=== PATIENT | female | born 1935 | race Caucasian/White ===

== ENCOUNTER 2016-06-12 07:44 | Inpatient (IN) | payer OTHER, MEDICARE ==
[~2016-06-12] VITALS: Ht 160 cm; Wt 78.9 kg
[2016-06-12] VITALS (8 sets, daily range): BP systolic 93–120; BP diastolic 58–71; PULSE 69–88; TEMP 36.3–36.8; O2SAT 94–100; Ht 160 cm; Wt 78.9 kg
[~2016-06-12 07:44] MED LIST: ACET325T96 PO; ALEN70TA2 PO; CHOLTAB3 PO; METRONIDAZOLE 500MG / NSS IV SCH; MULT1CAP2 PO; PANT40TA PO
[2016-06-12] MEDS ORDERED: HYDROmorphone INJ 1 MG/ML SYR ONE (08:02)
[2016-06-12] MEDS ORDERED: SODIUM CHLORIDE 0.9% 1000ML 1,000 ML IV STA ×2 (08:03)
[2016-06-12] MEDS ORDERED: HYDROmorphone INJ 2 MG/ML SYR/VIAL IV STA (08:03)
[2016-06-12] MEDS ORDERED: ONDANSETRON INJ 2 MG/ML 2 ML VIAL IV STA (08:03)
[2016-06-12 08:19] LABS: ISTAT CREATININE 0.8 mg/dl (0.6-1.3); ISTAT HEMOGLOBIN 8.2 g/dl (12.0-16.0); ISTAT IONIZED CALCIUM 1.15 mmol/l (1.12-1.32)
[2016-06-12] MEDS ORDERED: PIPERACILLIN/TAZOBACTAM 4.5 GM/100ML D5W IV STA (08:28)
--- NOTE | 2016-06-12 08:28 | DIAGNOSTIC IMAGING REPORT ---
CT ABD/PELVIS IV CONTRAST ONLY CLINICAL HISTORY: Severe generalized abdominal pain COMPARISON STUDY: None. TECHNIQUE: Following the IV administration of 118 mL of Optiray-320, CT scan of the abdomen and pelvis was performed from the lung bases to the proximal femurs. Images are reviewed in the axial, sagittal, and coronal planes. IV contrast was administered without complication. CT DOSE: 602.50 mGy.cm FINDINGS: Lower chest: There is a large hiatal hernia present. There is bibasal atelectasis. Liver: There is mild hepatic steatosis. No focal masses are visualized. Gallbladder: There are tiny gallstones present. Spleen: Normal in size and attenuation. Pancreas: Unremarkable. Adrenal glands: Unremarkable. Kidneys: There is a 32 mm right renal cyst. Bowel: There is a pneumoperitoneum. There is colonic diverticulosis. There are no transition zones indicate bowel obstruction. Surgical consultation is recommended. Peritoneum: There is free intraperitoneal air present. There is pelvic ascites, there is perihepatic and perisplenic fluid. There is fluid within the paracolic gutters right greater than left. Vasculature: The abdominal aorta is normal in course and caliber. Adenopathy: None. Pelvic viscera: The uterus is surgically absent. Skeletal structures: There is a severe L1 compression fracture with retropulsion and secondary spinal canal narrowing. IMPRESSION: 1. Free intraperitoneal air, suspicious for a perforated viscus. Surgical consultation is recommended 2. Free abdominal fluid within the pelvis, both paracolic gutters, and adjacent the liver and spleen 3. Burgos diverticulosis 4. Cholelithiasis 5. Hiatal hernia 6. Severe L1 compression fracture with retropulsion and secondary spinal canal narrowing 7. No evidence of bowel obstruction Electronically signed by: Yuval Nixon M.D. 06/12/2016 8:27 AM Dictated Date/Time: 06/12/2016 8:19 AM
[2016-06-12] MEDS ORDERED: OPTIRAY 320 IV PRN (08:30)
[2016-06-12 08:35] LABS: HEMATOCRIT 25.1 % (37-47); MEAN CELL VOLUME 64.5 fL (80-100); MEAN CORPUSCULAR HGB CONC 27.9 g/dl (32-36); MEAN PLATELET VOLUME 8.9 fL (7.4-10.4); PLATELET COUNT 652 K/uL (130-400); RED BLOOD COUNT 3.89 M/uL (4.2-5.4); WHITE BLOOD COUNT 9.84 K/uL (4.8-10.8)
--- NOTE | 2016-06-12 08:36 | DIAGNOSTIC IMAGING REPORT ---
CHEST ONE VIEW PORTABLE CLINICAL HISTORY: Severe abdominal pain. Perforated viscus. COMPARISON STUDY: CT scan dated 06/12/2016 FINDINGS: The heart is mildly enlarged. There is a retrocardiac opacity consistent with a large hiatal hernia. There is mild interstitial prominence without evidence of overt failure. There is no lobar consolidation. There is probable free air beneath the right hemidiaphragm. IMPRESSION: 1. Large hiatal hernia 2. No evidence of focal pulmonary consolidation 3. Interstitial prominence without evidence of overt failure 4. Probable free intraperitoneal air Electronically signed by: Yuval Nixon M.D. 06/12/2016 8:35 AM Dictated Date/Time: 06/12/2016 8:33 AM
[2016-06-12 08:41] LABS: INR 1.1 (0.9-1.1); PROTHROMBIN TIME (PATIENT) 11.6 SECONDS (9.0-12.0)
[2016-06-12 08:54] LABS: ANISOCYTOSIS PRESENT; BASO % 0.1 %; BASO ABS # 0.01 K/uL (0-0.2); COMPLETE YES; EOS % 0.2 %; HYPOCHROMIA PRESENT; IG% 0.1 %; LYMPH % 3.9 %; LYMPH ABS # 0.38 K/uL (1.2-3.4); MICROCYTOSIS PRESENT; MONO % 2.4 %; NEUT % 93.3 %; POIKILOCYTOSIS PRESENT; TEAR DROP CELLS 1+
[2016-06-12 08:56] LABS: ALT/SGPT 10 U/L (12-78); BLOOD UREA NITROGEN 13 mg/dl (7-18); BUN/CREATININE RATIO 14.6 (10-20); CALCIUM 8.3 mg/dl (8.5-10.1); CARBON DIOXIDE 22 mmol/L (21-32); CHLORIDE 98 mmol/L (98-107); CREATININE 0.89 mg/dl (0.60-1.20); GLUCOSE 100 mg/dl (70-99); POTASSIUM 4.1 mmol/L (3.5-5.1); SODIUM 131 mmol/L (136-145)
[2016-06-12] MEDS ORDERED: SUCCINYLCHOLINE CHLORIDE 20 MG/ML 10 ML VIAL IV ONE (08:56)
[2016-06-12] MEDS ORDERED: LIDOCAINE HCL 2% 2 ML VIAL (20MG/ML) ONE (08:56)
[2016-06-12] MEDS ORDERED: ROCURONIUM BROMIDE 10 MG/ML 5 ML VIAL ONE (08:56)
[2016-06-12] MEDS ORDERED: PROPOFOL IV EMULSION 10 MG/ML 20 ML VIAL IV ONE (08:56)
[2016-06-12] MEDS ORDERED: FENTANYL CITRATE INJ 50 MCG/1 ML 2 ML VIAL ONE ×3 (08:57→11:33)
[2016-06-12 09:01] LABS: ALB/GLOB RATIO 0.7 (0.9-2); ALKALINE PHOSPHATASE 101 U/L (45-117); AST/SGOT 13 U/L (15-37)
[2016-06-12] MEDS ORDERED: ATROPINE SULFATE 0.1 MG/ML 5ML SYR IV PRN (09:15)
[2016-06-12] MEDS ORDERED: EpHEDrine SULFATE INJ 50 MG/ML AMP IV PRN (09:15)
[2016-06-12] MEDS ORDERED: ONDANSETRON INJ 2 MG/ML 2 ML VIAL IV PRN ×2 (09:15→11:30)
[2016-06-12] MEDS ORDERED: MoRPHine SULFATE 10 MG/ML CARP/VIAL IV PRN (09:15)
[2016-06-12] MEDS ORDERED: FENTANYL CITRATE INJ 50 MCG/1 ML 2 ML VIAL IV PRN (09:15)
--- NOTE | 2016-06-12 09:27 | Pre-Operative Consultation ---
History General Date of Service: Jun 12, 2016. Stated Complaint: abdominal pain HPI HPI: The patient is a 81 year old female being seen at the request of Terry Muhammad for abdominal pain. She was in her usual state of health until she awoke this morning. She sat up in bed and twisted to stretch at which time she felt as though something "popped". Developed sharp, intense, generalized abdominal pain. Constant, 10/10, worse with movement, no relieving factors. No nausea or vomiting. No fevers. Last meal was dinner last night. She has had colonoscopies in the past which have been OK. Pain medication has helped somewhat although it still hurts. Historian: patient Anticipated Procedure: exploratory laparotomy, possible bowel resection, possible ostomy Procedure Urgency: Emergency Risk Assessment Previous Exercise Tolerance: asymptomatic Light housework (4 MET) Pre-Op Conditions: no known hx of COPD, no known hx of arrhythmia, no known hx of asthma, no known hx of cerebrovascular disease, no known hx of compensated CHF, no known hx of diabetes, no known hx of elevated BNP, no known hx of family h/o anesthesia problems, no known hx of h/o anesthesia problems, no known hx of h/o orthostatic intolerance, no known hx of history of RI, no known hx of implanted defibrillator, no known hx of liver disease, no known hx of other, no known hx of pacemaker, no known hx of problems w/ neck or jaw, no known hx of recent PCI, no known hx of renal insufficiency, no known hx of seizure disorder, no known hx of stable angina, no known hx of thyroid disease, no known hx of valvular heart disease Daily beta darrick use?: No Medical & Surgical History Past Medical History: no pertinent history Past Surgical History: total knee replacement (bilateral), other (cataract surgery, esophageal dilation) Family History Family History: no pertinent family hx Social History Smoking Status: Never Smoker Allergies Allergies: Coded Allergies: No Known Allergies (Verified , 06/12/16) Medications Current Inpatient Medications Current Inpatient Medications Medications (Trade) Dose Ordered Sig/Mar Route Start Time Stop Time Status Last Admin Dose Admin Sodium Chloride (Nss 1000ml) 1,000 ml @ 200 mls/hr Q5H STAT IV 06/12/16 08:03 06/12/16 13:02 Ioversol (Optiray 320) 125 ml UD PRN IV 06/12/16 08:30 3/1/17 08:29 Fentanyl Citrate (Fentanyl Inj) 50 mcg Q5M PRN IV 06/12/16 09:15 06/13/16 09:14 UNV Morphine Sulfate (MoRPHine SULFATE INJ) 2 mg Q5M PRN IV 06/12/16 09:15 06/13/16 09:14 UNV Ondansetron HCl (Zofran Inj) 4 mg ONE PRN IV 06/12/16 09:15 UNV Ephedrine Sulfate (EpHEDrine SULFATE INJ) 5 mg Q5M PRN IV 06/12/16 09:15 06/13/16 09:14 UNV Atropine Sulfate (Atropine Sulfate 0.1MG/Ml Inj) 0.5 mg Q1M PRN IV 06/12/16 09:15 06/13/16 09:14 UNV Review of Systems Review of Systems Constitutional: no symptoms reported Eyes: reports: no symptoms ENT: reports: no symptoms reported Cardiovascular: reports: no symptoms reported Respiratory: reports: short of breath (more so recently due to decreased activity) Gastrointestinal: see HPI Genitourinary - Female: reports: no symptoms Musculoskeletal: back pain Integumentary: no symptoms reported Neurologic: reports: no symptoms Psychiatric: reports: no symptoms Endocrine: no symptoms Hematologic / Lymphatic: no symptoms Physical Exam Physical Exam General Appearance: + WD/WN, No distress Ears, Nose, Throat: + normal ENT inspection Neck: No abnormal inspection, No tracheal deviation Respiratory: No accessory muscle use, No decreased breath sounds, No rales Cardiovascular: No JVD, No abnormal rate, No diastolic murmur, No systolic murmur Abdomen: + guarding (mild), + hernia (small umbilical hernia, reducible), + tenderness (diffusely), No distension, No organomegaly, No pulsatile mass Extremities: No deformity, No edema, No swelling Neurologic/Psychiatric: No abnormal home visitor II-XII, No decreased LOC Skin Characteristics: No abnormal color, No cyanosis Diagnostics Labs Labs Results Past 24 Hours Test 06/12/16 07:52 06/12/16 08:01 06/12/16 08:03 06/12/16 08:26 Range/Units White Blood Count 9.84 4.8-10.8 K/uL Red Blood Count 3.89 4.2-5.4 M/uL Hemoglobin 7.0 12.0-16.0 g/dL Hematocrit 25.1 37-47 % Mean Corpuscular Volume 64.5 80-100 fL Mean Corpuscular Hemoglobin 18.0 25-34 pg Mean Corpuscular Hemoglobin Concent 27.9 32-36 g/dl Platelet Count 652 130-400 K/uL Mean Platelet Volume 8.9 7.4-10.4 fL Neutrophils (%) (Auto) 93.3 % Lymphocytes (%) (Auto) 3.9 % Monocytes (%) (Auto) 2.4 % Eosinophils (%) (Auto) 0.2 % Basophils (%) (Auto) 0.1 % Neutrophils # (Auto) 9.18 1.4-6.5 K/uL Lymphocytes # (Auto) 0.38 1.2-3.4 K/uL Monocytes # (Auto) 0.24 0.11-0.59 K/uL Eosinophils # (Auto) 0.02 0-0.5 K/uL Basophils # (Auto) 0.01 0-0.2 K/uL RDW Standard Deviation 47.3 36.4-46.3 fL RDW Coefficient of Variation 20.2 11.5-14.5 % Immature Granulocyte % (Auto) 0.1 % Immature Granulocyte # (Auto) 0.01 0.00-0.02 K/uL Hypochromasia PRESENT Poikilocytosis PRESENT Anisocytosis PRESENT Microcytosis PRESENT Tear Drop Cells 1+ Prothrombin Time 11.6 9.0-12.0 SECONDS Prothromb Time International Ratio 1.1 0.9-1.1 Activated Partial Thromboplast Time 26.0 21.0-31.0 SECONDS Partial Thromboplastin Ratio 1.0 Sodium Level 131 136-145 mmol/L Potassium Level 4.1 3.5-5.1 mmol/L Chloride Level 98 98-107 mmol/L Carbon Dioxide Level 22 21-32 mmol/L Anion Gap 11.0 18.0 16-25 mmol/L Blood Urea Nitrogen 13 7-18 mg/dl Creatinine 0.89 0.60-1.20 mg/dl Est Creatinine Clear Calc Drug Dose 47.6 ml/min Estimated GFR () 69.5 Estimated GFR (Non- 59.9 BUN/Creatinine Ratio 14.6 10-20 Random Glucose 100 70-99 mg/dl Calcium Level 8.3 8.5-10.1 mg/dl Total Bilirubin 0.5 0.2-1 mg/dl Aspartate Amino Transf (AST/SGOT) 13 15-37 U/L Alanine Aminotransferase (ALT/SGPT) 10 12-78 U/L Alkaline Phosphatase 101 45-117 U/L Troponin I < 0.015 0-0.045 ng/ml Total Protein 6.1 6.4-8.2 gm/dl Albumin 2.6 3.4-5.0 gm/dl Globulin 3.5 2.5-4.0 gm/dl Albumin/Globulin Ratio 0.7 0.9-2 Lipase 289 73-393 U/L Bedside Hemoglobin 8.2 12.0-16.0 g/dl Bedside Hematocrit 24 37-47 % Bedside Sodium 132 135-144 mEq/L Bedside Potassium 4.2 3.3-5.0 mEq/L Bedside Chloride 98 101-112 mEq/L Bedside Total CO2 21 24-31 mEq/l Bedside Blood Urea Nitrogen 12 7-18 mg/dl Bedside Creatinine 0.8 0.6-1.3 mg/dl Bedside Glucose (other) 105 70-99 mg/dl Bedside Ionized Calcium (Merari) 1.15 1.12-1.32 mmol/l Lactic Acid Level 3.8 0.4-2.0 mmol/L Lab Interpretation Lab Interpretation: labs were reviewed Diagnostic Radiology Diagnostic Radiology CT scan shows free air and free fluid of unclear etiology. Impression Assessment and Plan Assessment and Plan 81 yr old remarkably healthy woman presents with free air. No prior abdominal operations. Possibilities include ruptured stomach/ duodenal ulcer, ruptured diverticulitis, ruptured small bowel. Discussed exploratory laparotomy, possible bowel resection, possible ostomy. Discussed possibility of discharge to rehab as she lives alone currently. Consent signed. For OR now.
[2016-06-12] MEDS ORDERED: NURSING VERBAL MED ORDER ONE (09:45)
[2016-06-12] MEDS ORDERED: BUPIVACAINE 0.5 % 5 MG/1 ML MPF 30ML VIAL ONE (10:04)
[2016-06-12] MEDS ORDERED: DEXAMETHASONE SOD INJ 4 MG/ML VIAL ONE (10:23)
[2016-06-12] MEDS ORDERED: ONDANSETRON INJ 2 MG/ML 2 ML VIAL ONE (10:23)
--- NOTE | 2016-06-12 11:17 | [facility] Post Operative Brief Note ---
Immediate Operative Summary Operative Date Jun 12, 2016. Pre-Operative Diagnosis Free Air in Abdomen Post-Operative Diagnosis Perforated Duodenal Ulcer Procedure(s) Performed Exploratory Laparotomy and repair of perforated duodenal ulcer with jay jay patch Surgeon Dr. Elyssa De León Barkeeper Surgeon(s) none Estimated Blood Loss 15 ml Findings anteriorly perforated duodenal ulcer Fluids (cc crystalloids) 1800 cc Specimens none per surgeon Drains none Anesthesia GET Complication(s) None Disposition Recovery Room / PACU
[2016-06-12] MEDS ORDERED: MoRPHine SULFATE 4 MG/ML 1 ML CARP\\VIAL IV PRN (11:30)
[2016-06-12] MEDS ORDERED: MoRPHine SULFATE 2 MG/ML CARP IV PRN (11:30)
[2016-06-12] MEDS ORDERED: ACETAMINOPHEN 325 MG TAB PO PRN (11:30)
[2016-06-12] MEDS ORDERED: OXYCODONE/ACETAMINOPHEN 5-325 TAB PO PRN ×2 (11:30)
--- NOTE | 2016-06-12 11:40 | OPERATIVE REPORT ---
DATE OF OPERATION: 06/12/2016 PREOPERATIVE DIAGNOSIS: Perforated viscus. POSTOPERATIVE DIAGNOSIS: Perforated duodenal ulcer. PROCEDURE: Exploratory laparotomy and Nba patch repair of perforated duodenal ulcer. SURGEON: Dr. Elyssa De León. TICKET ATTENDANT: None. ANESTHESIA: General endotracheal anesthesia. ESTIMATED BLOOD LOSS: 15 mL. IV FLUIDS: 1800 mL. COMPLICATIONS: None. OPERATIVE FINDINGS: Anterior perforated duodenal ulcer about 1 liter of enteric contents in abdominal cavity. INDICATIONS: Ms. Rahman is an 81-year-old remarkably healthy woman who presented with acute onset of severe abdominal pain with free air. She was consented regarding urgent exploratory laparotomy. OPERATION AND FINDINGS: The patient received Zosyn and Flagyl preoperatively. After the induction of general endotracheal anesthesia, she had placement of sequential compression devices and a Aparicio catheter. Her abdomen was sterilely prepped and draped. A midline incision was made. She did have an umbilical hernia. The hernia was taken down off the umbilicus and the abdomen entered through the hernia sac. There was no evidence of any intra-abdominal adhesions. There was over a liter of free enteric contents which were suctioned. The abdomen was inspected, and no leakage appeared to be coming from the right upper quadrant. This area was inspected anteriorly, perforated duodenal ulcer was found. The remainder of the abdomen was inspected. Small bowel was run. There was no evidence of lesions. The colon appeared within normal limits. The enteric contents were suctioned. The duodenum was freed from some adhesions over to the area of the gallbladder. Three 3-0 silk sutures were used to primarily close the ulcer defect. A tongue of omentum was created and brought up to lie over the ulcer defect and this was secured down with the previously placed silk stitches. The abdomen was irrigated and noted to be hemostatic. The gallbladder did have some small stones on CT, but there was no evidence of primary inflammation of the gallbladder. There were some secondary changes of thickening of the wall, but this was all secondary to the changes in the right upper quadrant. The abdomen was irrigated until the effluent was clear. After the sponge and needle counts were correct, the fascia was closed with 2 running #1 PDS sutures over a fish. The fish was removed. 30 mL of 0.5% Marcaine were injected for local anesthesia into the skin. The skin was loosely closed with taran. Sterile dressing was applied. She was awakened and taken to recovery in stable condition. I attest to the content of the Intraoperative Record and any orders documented therein. Any exceptio ns are noted below.
[2016-06-12] MEDS ORDERED: PANTOprazole INJ 80 MG in DEXTROSE 5% 100ML IV ONE (12:00)
[2016-06-12] MEDS: PANTOprazole INJ 40 MG in DEXTROSE 5% 100ML IV SCH ×3 (12:10→22:29)
--- NOTE | 2016-06-12 12:20 | Anesthesiology Progress Note ---
Anesthesia Post Op Note Date & Time Jun 12, 2016 at 12:20 Vital Signs Vital Signs Past 12 Hours Date Time Temp Pulse Resp B/P Pulse Ox O2 Delivery O2 Flow Rate FiO2 06/12/16 12:10 86 15 118/56 97 Nasal Cannula 3 06/12/16 12:00 36.6 85 13 104/52 96 Nasal Cannula 3 06/12/16 11:50 77 17 106/52 94 Nasal Cannula 3 06/12/16 11:40 83 22 118/63 100 Mask 10 06/12/16 11:30 87 19 108/92 100 Mask 10 06/12/16 11:21 36.8 90 13 108/55 100 Mask 10 06/12/16 09:25 93 20 136/78 98 06/12/16 09:20 95 Room Air 06/12/16 08:32 93 24 137/65 95 Room Air 06/12/16 08:20 86 20 117/60 98 Room Air 06/12/16 08:13 86 26 100/51 98 Room Air 06/12/16 07:56 36.8 88 26 113/57 98 Room Air 06/12/16 07:51 88 Notes Mental Status: alert / awake / arousable, participated in evaluation Pt Amnestic to Procedure: Yes Nausea / Vomiting: adequately controlled Pain: adequately controlled Airway Patency, RR, SpO2: stable & adequate BP & HR: stable & adequate Hydration State: stable & adequate Anesthetic Complications: no major complications apparent
[2016-06-12] MEDS ORDERED: PIPERACILL/TAZOBAC CONSULT ACTIVE PRN (13:00)
[2016-06-12] MEDS: D5W AND 1/2NSS + 20MEQ KCL 1,000 ML IV SCH ×2 (13:28→20:40)
--- NOTE | 2016-06-12 14:30 | EMERGENCY ROOM VISIT NOTE ---
History Report prepared by Valdemar: Radha Arango Under the Supervision of: Dr. Terry Muhammad M.D. First contact with patient: 08:01 Chief Complaint: ABDOMINAL PAIN Stated Complaint: ABD PAIN Nursing Triage Summary: patient states she started with mid abdominal pain "all across the top of my stomach" I rolled over last night and the "pain stabbed me, I became sob with it" patient medicated with a total of 4 m morphine by medic "no relief" pt also given 4 mg zofran. patient reports bm last night was "normal" for me History of Present Illness The patient is a 81 year old female who presents to the Emergency Room with complaints of constant mid abdominal pain starting 5 hours ENCAPSULATOR. The patient currently rates the pain as a 10/10 in severity.The patient states that while laying down she was turning over and felt a felt a twist in her stomach and then the stabbing pain began. The patient states that the pain recently started to feel that it was radiating to her back. The patient denies any irregular bowel movement, nausea or vomiting. She states that the pain is increased when she breaths. She denies taking any blood thinners but states she takes Tylenol for arthritis but otherwise only takes vitamins. The patient did receive Morphine and Zofran prior to arrival to the ER. She presents by EMS. Source of History: patient Onset: 5 hours ENCAPSULATOR Position: abdomen (mid) Symptom Intensity: 10/10 Quality: stabbing Timing: constant Modifying Factors (Worsening): breathing Associated Symptoms: No nausea, No vomiting Note: Patient denies irregular bowel movements. Review of Systems See HPI for pertinent positives & negatives. A total of 10 systems reviewed and were otherwise negative. Past Medical & Surgical Medical Problems: (1) Arthritis (2) Perforated duodenal ulcer Family History No pertient family history secondary to age. Social History Smoking Status: Never Smoker Drug Use: none Marital Status: Occupation Status: retired Current/Historical Medications Scheduled Ergocalciferol (Vitamin D), 400 INTER.UNIT PO DAILY Multiple Vitamins W/ Minerals (Womens 50+ Advanced), 1 TAB PO DAILY Scheduled PRN Acetaminophen Tab (Tylenol), 650 MG PO DAILY PRN for prn Allergies Coded Allergies: No Known Allergies (Verified , 06/12/16) Physical Exam Vital Signs Date Time Temp Pulse Resp B/P Pulse Ox O2 Delivery O2 Flow Rate FiO2 06/12/16 11:21 36.8 90 13 108/55 100 Mask 10 06/12/16 09:25 93 20 136/78 98 06/12/16 09:20 95 Room Air 06/12/16 08:32 93 24 137/65 95 Room Air 06/12/16 08:20 86 20 117/60 98 Room Air 06/12/16 08:13 86 26 100/51 98 Room Air 06/12/16 07:56 36.8 88 26 113/57 98 Room Air 06/12/16 07:51 88 Physical Exam GENERAL: Patient is in moderate distress secondary to pain. HEENT: No acute trauma, normocephalic atraumatic, mucous membranes moist, no nasal congestion, no scleral icterus. NECK: No stridor, no adenopathy, no meningismus, trachea is midline. LUNGS: Clear to auscultation bilaterally, no wheeze, no rhonchi, breath sounds equal. HEART: 2/6 systolic murmur with regular rate and rhythm. ABDOMEN: Diffuse moderate tenderness to palpation, no peritonitis. Reducible non tender umbilical hernia, soft abdomen, non distended. EXTREMITIES: No cyanosis or edema, full range of motion of all the joints without pain or difficulty, no signs for acute trauma. NEUROLOGIC: Oriented x 3, no acute motor or sensory deficits, no focal weakness. SKIN: Pale, no rash, no jaundice, no diaphoresis. Medical Decision & Procedures ER Provider Diagnostic Interpretation: X-ray results as stated below per interpretation by me and the radiologist: CHEST ONE VIEW PORTABLE CLINICAL HISTORY: Severe abdominal pain. Perforated viscus. COMPARISON STUDY: CT scan dated 06/12/2016 FINDINGS: The heart is mildly enlarged. There is a retrocardiac opacity consistent with a large hiatal hernia. There is mild interstitial prominence without evidence of overt failure. There is no lobar consolidation. There is probable free air beneath the right hemidiaphragm. IMPRESSION: 1. Large hiatal hernia 2. No evidence of focal pulmonary consolidation 3. Interstitial prominence without evidence of overt failure 4. Probable free intraperitoneal air Electronically signed by: Yuval Nixon M.D. 06/12/2016 8:35 AM Dictated Date/Time: 06/12/2016 8:[address] results as stated below per my review and radiologist interpretation: CT ABD/PELVIS IV CONTRAST ONLY CLINICAL HISTORY: Severe generalized abdominal pain COMPARISON STUDY: None. TECHNIQUE: Following the IV administration of 118 mL of Optiray-320, CT scan of the abdomen and pelvis was performed from the lung bases to the proximal femurs. Images are reviewed in the axial, sagittal, and coronal planes. IV contrast was administered without complication. CT DOSE: 602.50 mGy.cm FINDINGS: Lower chest: There is a large hiatal hernia present. There is bibasal atelectasis. Liver: There is mild hepatic steatosis. No focal masses are visualized. Gallbladder: There are tiny gallstones present. Spleen: Normal in size and attenuation. Pancreas: Unremarkable. Adrenal glands: Unremarkable. Kidneys: There is a 32 mm right renal cyst. Bowel: There is a pneumoperitoneum. There is colonic diverticulosis. There are no transition zones indicate bowel obstruction. Surgical consultation is recommended. Peritoneum: There is free intraperitoneal air present. There is pelvic ascites, there is perihepatic and perisplenic fluid. There is fluid within the paracolic gutters right greater than left. Vasculature: The abdominal aorta is normal in course and caliber. Adenopathy: None. Pelvic viscera: The uterus is surgically absent. Skeletal structures: There is a severe L1 compression fracture with retropulsion and secondary spinal canal narrowing. IMPRESSION: 1. Free intraperitoneal air, suspicious for a perforated viscus. Surgical consultation is recommended 2. Free abdominal fluid within the pelvis, both paracolic gutters, and adjacent the liver and spleen 3. [place] diverticulosis 4. Cholelithiasis 5. Hiatal hernia 6. Severe L1 compression fracture with retropulsion and secondary spinal canal narrowing 7. No evidence of bowel obstruction Electronically signed by: Yuval Nixon M.D. 06/12/2016 8:27 AM Dictated Date/Time: 06/12/2016 8:19 AM Laboratory Results 06/12/16 07:52 Red Blood Count 3.89, Mean Corpuscular Volume 64.5, Mean Corpuscular Hemoglobin 18.0, Mean Corpuscular Hemoglobin Concent 27.9, Mean Platelet Volume 8.9, Neutrophils (%) (Auto) 93.3, Lymphocytes (%) (Auto) 3.9, Monocytes (%) (Auto) 2.4, Eosinophils (%) (Auto) 0.2, Basophils (%) (Auto) 0.1, Neutrophils # (Auto) 9.18, Lymphocytes # (Auto) 0.38, Monocytes # (Auto) 0.24, Eosinophils # (Auto) 0.02, Basophils # (Auto) 0.01 06/12/16 07:52 Test 06/12/16 07:52 06/12/16 08:01 06/12/16 08:26 White Blood Count 9.84 K/uL (4.8-10.8) Red Blood Count 3.89 M/uL (4.2-5.4) Hemoglobin 7.0 g/dL (12.0-16.0) Hematocrit 25.1 % (37-47) Mean Corpuscular Volume 64.5 fL (80-100) Mean Corpuscular Hemoglobin 18.0 pg (25-34) Mean Corpuscular Hemoglobin Concent 27.9 g/dl (32-36) Platelet Count 652 K/uL (130-400) Mean Platelet Volume 8.9 fL (7.4-10.4) Neutrophils (%) (Auto) 93.3 % Lymphocytes (%) (Auto) 3.9 % Monocytes (%) (Auto) 2.4 % Eosinophils (%) (Auto) 0.2 % Basophils (%) (Auto) 0.1 % Neutrophils # (Auto) 9.18 K/uL (1.4-6.5) Lymphocytes # (Auto) 0.38 K/uL (1.2-3.4) Monocytes # (Auto) 0.24 K/uL (0.11-0.59) Eosinophils # (Auto) 0.02 K/uL (0-0.5) Basophils # (Auto) 0.01 K/uL (0-0.2) RDW Standard Deviation 47.3 fL (36.4-46.3) RDW Coefficient of Variation 20.2 % (11.5-14.5) Immature Granulocyte % (Auto) 0.1 % Immature Granulocyte # (Auto) 0.01 K/uL (0.00-0.02) Hypochromasia PRESENT Poikilocytosis PRESENT Anisocytosis PRESENT Microcytosis PRESENT Tear Drop Cells 1+ Prothrombin Time 11.6 SECONDS (9.0-12.0) Prothromb Time International Ratio 1.1 (0.9-1.1) Activated Partial Thromboplast Time 26.0 SECONDS (21.0-31.0) Partial Thromboplastin Ratio 1.0 Est Creatinine Clear Calc Drug Dose 47.6 ml/min Estimated GFR () 69.5 Estimated GFR (Non- 59.9 BUN/Creatinine Ratio 14.6 (10-20) Calcium Level 8.3 mg/dl (8.5-10.1) Total Bilirubin 0.5 mg/dl (0.2-1) Aspartate Amino Transf (AST/SGOT) 13 U/L (15-37) Alanine Aminotransferase (ALT/SGPT) 10 U/L (12-78) Alkaline Phosphatase 101 U/L (45-117) Troponin I < 0.015 ng/ml (0-0.045) Total Protein 6.1 gm/dl (6.4-8.2) Albumin 2.6 gm/dl (3.4-5.0) Globulin 3.5 gm/dl (2.5-4.0) Albumin/Globulin Ratio 0.7 (0.9-2) Lipase 289 U/L (73-393) Bedside Hemoglobin 8.2 g/dl (12.0-16.0) Bedside Hematocrit 24 % (37-47) Bedside Sodium 132 mEq/L (135-144) Bedside Potassium 4.2 mEq/L (3.3-5.0) Bedside Chloride 98 mEq/L (101-112) Bedside Total CO2 21 mEq/l (24-31) Anion Gap 18.0 mmol/L (16-25) Bedside Blood Urea Nitrogen 12 mg/dl (7-18) Bedside Creatinine 0.8 mg/dl (0.6-1.3) Bedside Glucose (other) 105 mg/dl (70-99) Bedside Ionized Calcium (Merari) 1.15 mmol/l (1.12-1.32) Lactic Acid Level 3.8 mmol/L (0.4-2.0) Laboratory results reviewed by me. Medications Administered Medications (Trade) Dose Ordered Sig/Mar Route Start Time Stop Time Status Last Admin Dose Admin Hydromorphone HCl 1 mg 1 mg STK-MED ONCE .ROUTE 06/12/16 08:02 06/12/16 08:04 DC 06/12/16 08:18 0.5 MG Sodium Chloride (Nss 1000ml) 1,000 ml @ 999 mls/hr Q1H1M STAT IV 06/12/16 08:03 06/12/16 09:03 DC 06/12/16 08:03 999 MLS/HR Piperacillin Sod/ Tazobactam Sod 4.5 gm 4.5 gm NOW STAT IV 06/12/16 08:28 06/12/16 08:29 DC 06/12/16 08:31 4.5 GM Metronidazole/Prmx (Flagyl / Nss/ Premixed Nss) 100 ml @ 100 mls/hr PREOP IV 06/12/16 06:00 06/12/16 23:59 06/12/16 10:01 100 MLS/HR Bupivacaine HCl (Marcaine 0.5% MPF Inj) 30 ml STK-MED ONCE .ROUTE 06/12/16 10:04 06/12/16 10:06 DC 06/12/16 11:02 30 ML ECG Indication: abdominal pain Rate (beats per minute): 85 Rhythm: normal sinus Findings: no acute ischemic change, no ectopy ED Course 0801: The patient was evaluated in room B2. A complete history and physical exam was performed. 0803: Ordered Sodium Chloride 1,000 ml @ 200 mls/hr IV, Dilaudid 1 mg IV, Zofran Inj 4 mg IV, Sodium Chloride 1,000 ml @ 999 mls/hr IV. 0828: Ordered Zosyn Iv 4.5 gm IV 0833: I discussed the case with Dr. Messer General Surgery. She agreed to evaluate the patient for further management and care and will be taking her to the OR for surgery. 0835: I reevaluated the patient and she was feeling a little better after receiving the medication and I also informed her of her results. Medical Decision The patient is a 81 year old female who presents to the ED with complaints of abdominal pain. Differential diagnoses considered include triple A, aortic dissection, bowel obstruction, bowl perforation, hernia, biliary colic, renal colic, UTI. . There is no leukocytosis. The patient is anemic and this is a drop in her typical hemoglobin value. She There is no significant electrolyte abnormality or kidney failure. There was no hepatitis or coagulopathy. No pancreatitis. Lactic acid level was mildly elevated consistent with dehydration and/or bowel ischemia. Chest film showed no pneumonia or mediastinal widening. EKG showed a normal sinus rhythm, no acute ischemia. Cardiac enzyme testing times one is not consistent with acute cardiac injury. Abdominal CT scan shows free intraperitoneal air with some ascites. The patient presents in pain, she was mildly hypotensive, she was pale. She was aggressively managed. She received IV saline, IV Dilaudid, IV Zofran. She was given IV Zosyn. Given the findings on CT, I did contact general surgery. The patient is going to the OR. I talked to the patient about her findings, I talked with case management. Of note, blood was ordered for possible transfusion, this may be needed after her surgery or even during her operation. Consults Time Called: 828 Consulting Physician: Dr. Messer General Surgery Returned Call: [phone] I discussed the case with Dr. Messer General Surgery. She agreed to evaluate the patient for further management and care and will be taking her to the OR for surgery. Impression Primary Impression: Bowel perforation Additional Impressions: Anemia Hypotension Critical Care I have personally spent greater than 30 minutes of critical care time in the direct management of this patient. This includes bedside care, interpretation of diagnostic studies and testing, discussion with consultants, the patient, and family members, and other required patient management activities. This 30 minutes is in excess of all separately billable procedures. Scribe Attestation The scribe's documentation has been prepared under my direction and personally reviewed by me in its entirety. I confirm that the note above accurately reflects all work, treatment, procedures, and medical decision making performed by me. Departure Information Dispostion Being Evaluated By Surgeon Juan Pearson M.D. (PCP) Patient Instructions [facility] Problem Qualifiers
[2016-06-12 15:33] LABS: URINE APPEARANCE CLEAR (CLEAR); URINE BILIRUBIN NEG (NEG); URINE COLOR YELLOW; URINE EPITHELIAL CELL AUTO >30 /lpf (0-5); URINE NITRITE NEG (NEG); URINE SPECIFIC GRAVITY > 1.045 (1.000-1.030); UROBILINOGEN NEG (NEG); ZZUR CULT IF INDIC CLEAN CATCH YES
[2016-06-12 15:38] LABS: MANUAL MICROSCOPIC REQUIRED? NO; REVIEW REQ? YES
[2016-06-12] MEDS: PIPERACILL/TAZOBAC IV 3.375 GM in DEXTROSE 5% 100ML 100 ML IV SCH ×2 (15:39→23:41)
[2016-06-13] VITALS (14 sets, daily range): BP systolic 105–130; BP diastolic 60–80; PULSE 86–90; TEMP 36.5–36.9; O2SAT 92–97
[2016-06-13] MEDS: PANTOprazole INJ 40 MG in DEXTROSE 5% 100ML IV SCH ×5 (03:44→23:44)
[2016-06-13] MEDS: D5W AND 1/2NSS + 20MEQ KCL 1,000 ML IV SCH ×3 (04:30→21:24)
[2016-06-13 08:04] LABS: HEMATOCRIT 19.8 % (37-47); MEAN CELL VOLUME 63.1 fL (80-100); MEAN CORPUSCULAR HEMOGLOBIN 17.5 pg (25-34); MEAN CORPUSCULAR HGB CONC 27.8 g/dl (32-36); PLATELET COUNT 552 K/uL (130-400); RED BLOOD COUNT 3.14 M/uL (4.2-5.4)
[2016-06-13 08:20] LABS: BUN/CREATININE RATIO 17.8 (10-20); CALCIUM 7.6 mg/dl (8.5-10.1); CREATININE 1.1 mg/dl (0.60-1.20); POTASSIUM 4.6 mmol/L (3.5-5.1)
[2016-06-13] MEDS: PIPERACILL/TAZOBAC IV 3.375 GM in DEXTROSE 5% 100ML 100 ML IV SCH (08:38)
[2016-06-13] MEDS: ENOXAPARIN 40 MG/0.4 ML SYR SQ SCH (08:42)
--- NOTE | 2016-06-13 08:44 | Surgery Progress Note ---
Surgery Progress Note Date of Service Jun 13, 2016. Subjective Post OP Day: 1 Sore in abdomen when she moves. Was up walking in room with walker yesterday. No flatus or bm. Does not like ng tube - uncomfortable. Objective Vital Signs: Date Time Temp Pulse Resp B/P Pulse Ox O2 Delivery O2 Flow Rate FiO2 06/13/16 07:25 36.8 88 16 118/73 95 Room Air 06/13/16 03:13 36.9 90 16 120/69 92 Room Air 06/12/16 23:45 Room Air 06/12/16 22:53 36.8 88 15 93/58 94 Room Air 06/12/16 20:42 36.4 85 16 111/68 97 Nasal Cannula 2.0 06/12/16 15:42 36.4 82 16 120/71 99 Nasal Cannula 2.0 06/12/16 15:15 Nasal Cannula 2.0 06/12/16 14:30 36.3 74 17 118/61 98 Nasal Cannula 2.0 06/12/16 13:25 36.5 74 16 108/66 100 Nasal Cannula 2.0 06/12/16 13:00 69 12 118/62 96 Nasal Cannula 2.0 06/12/16 12:30 36.5 78 12 108/68 96 Nasal Cannula 2.0 06/12/16 12:30 Nasal Cannula 2.0 06/12/16 12:30 Nasal Cannula 2.0 06/12/16 12:10 86 15 118/56 97 Nasal Cannula 3 06/12/16 12:00 36.6 85 13 104/52 96 Nasal Cannula 3 06/12/16 11:50 77 17 106/52 94 Nasal Cannula 3 06/12/16 11:40 83 22 118/63 100 Mask 10 06/12/16 11:30 87 19 108/92 100 Mask 10 06/12/16 11:21 36.8 90 13 108/55 100 Mask 10 06/12/16 09:25 93 20 136/78 98 06/12/16 09:20 95 Room Air Physical Exam: nasogastric drainage (180/110), urine output (595/200) General Appearance: WD/WN, no apparent distress Head: normocephalic, atraumatic Neck: supple Respiratory/Chest: lungs clear, normal breath sounds, no respiratory distress Cardiovascular: regular rate, rhythm, no murmur Abdomen: non distended, soft, + abnormal bowel sounds (hypoactive), + tenderness (appropriate) Incision(s): clean, dry, intact Extremities: no pedal edema Laboratory Results: Results Past 24 Hours Test 06/12/16 15:20 06/13/16 07:30 Range/Units Urine Color YELLOW Urine Appearance CLEAR CLEAR Urine pH 5.0 4.5-7.5 Urine Specific [place] > 1.045 1.000-1.030 Urine Protein TRACE NEG Urine Glucose (UA) NEG NEG Urine Ketones NEG NEG Urine Occult Blood 1+ NEG Urine Nitrite NEG NEG Urine Bilirubin NEG NEG Urine Urobilinogen NEG NEG Urine Leukocyte Esterase NEG NEG Urine WBC (Auto) 1-5 0-5 /hpf Urine RBC (Auto) 0-4 0-4 /hpf Urine Hyaline Casts (Auto) 5-10 0-5 /lpf Urine Epithelial Cells (Auto) >30 0-5 /lpf Urine Bacteria (Auto) 1+ NEG Urine Renal Epithelial Cells 0-5 0-5 /lpf White Blood Count 28.00 4.8-10.8 K/uL Red Blood Count 3.14 4.2-5.4 M/uL Hemoglobin 5.5 12.0-16.0 g/dL Hematocrit 19.8 37-47 % Mean Corpuscular Volume 63.1 80-100 fL Mean Corpuscular Hemoglobin 17.5 25-34 pg Mean Corpuscular Hemoglobin Concent 27.8 32-36 g/dl RDW Standard Deviation 47.4 36.4-46.3 fL RDW Coefficient of Variation 20.6 11.5-14.5 % Platelet Count 552 130-400 K/uL Mean Platelet Volume 8.0 7.4-10.4 fL Sodium Level 131 136-145 mmol/L Potassium Level 4.6 3.5-5.1 mmol/L Chloride Level 100 98-107 mmol/L Carbon Dioxide Level 24 21-32 mmol/L Anion Gap 7.0 3-11 mmol/L Blood Urea Nitrogen 20 7-18 mg/dl Creatinine 1.10 0.60-1.20 mg/dl Est Creatinine Clear Calc Drug Dose 38.5 ml/min Estimated GFR () 53.8 Estimated GFR (Non- 46.4 BUN/Creatinine Ratio 17.8 10-20 Random Glucose 142 70-99 mg/dl Calcium Level 7.6 8.5-10.1 mg/dl Microbiology Results 06/12/16 Urine Culture, Received Pending Assessment & Plan 81 yr old woman with perforated duodenal ulcer s/p repair. Doing well. Started with hgb of 7 which is now down to 5.5 (acute on chronic blood loss anemia). Will transfuse 2 units PRBCs. Continue protonix drip for total 72 hrs. Will check stool for H.pylori antigen when she has a bowel movement. Keep NG in place until tomorrow and then can d/c and start clears. PT/ OT evaluations.
[2016-06-13] MEDS: MoRPHine SULFATE 2 MG/ML CARP IV PRN ×2 (13:37→21:27)
[2016-06-14 04:00] VITALS: BP 148/83; PULSE 81; TEMP 36.5; O2SAT 97
[2016-06-14] MEDS: PANTOprazole INJ 40 MG in DEXTROSE 5% 100ML IV SCH ×5 (04:54→23:52)
[2016-06-14] MEDS: D5W AND 1/2NSS + 20MEQ KCL 1,000 ML IV SCH ×3 (04:54→23:52)
[2016-06-14 07:55] LABS: BUN/CREATININE RATIO 14.8 (10-20); CALCIUM 8.1 mg/dl (8.5-10.1); CREATININE 0.91 mg/dl (0.60-1.20); HEMATOCRIT 25.5 % (37-47); MEAN CELL VOLUME 69.3 fL (80-100); MEAN CORPUSCULAR HEMOGLOBIN 20.7 pg (25-34); MEAN CORPUSCULAR HGB CONC 29.8 g/dl (32-36); MEAN PLATELET VOLUME 8.4 fL (7.4-10.4); PLATELET COUNT 531 K/uL (130-400); POTASSIUM 4.3 mmol/L (3.5-5.1); RED BLOOD COUNT 3.68 M/uL (4.2-5.4); WHITE BLOOD COUNT 17.52 K/uL (4.8-10.8)
[2016-06-14 08:02] VITALS: BP 152/68; PULSE 80; TEMP 36.5; O2SAT 97
[2016-06-14 08:09] VITALS: O2SAT 97
[2016-06-14] MEDS: ENOXAPARIN 40 MG/0.4 ML SYR SQ SCH (08:56)
--- NOTE | 2016-06-14 13:21 | Surgery Progress Note ---
Surgery Progress Note Date of Service Jun 14, 2016. Subjective Post OP Day: 2 + ambulating, + feeling well, + pain controlled, No bowel movement, No complaints, No flatus, No nausea, No vomiting Objective Vital Signs: Date Time Temp Pulse Resp B/P Pulse Ox O2 Delivery O2 Flow Rate FiO2 06/14/16 08:09 97 Room Air 06/14/16 08:02 36.5 80 16 152/68 97 Room Air 06/14/16 08:00 Room Air 06/14/16 04:00 36.5 81 18 148/83 97 Room Air 06/13/16 23:45 Room Air 06/13/16 23:35 36.9 90 18 130/80 95 Room Air 06/13/16 15:40 36.7 89 16 130/72 97 Room Air 06/13/16 15:15 96 Room Air 06/13/16 13:30 36.5 88 18 114/69 96 Physical Exam: nasogastric drainage (bilious output) General Appearance: WD/WN, no apparent distress Head: normocephalic, atraumatic Respiratory/Chest: no respiratory distress, no accessory muscle use Abdomen: non tender, non distended, soft Laboratory Results: Results Past 24 Hours Test 06/14/16 07:05 Range/Units White Blood Count 17.52 4.8-10.8 K/uL Red Blood Count 3.68 4.2-5.4 M/uL Hemoglobin 7.6 12.0-16.0 g/dL Hematocrit 25.5 37-47 % Mean Corpuscular Volume 69.3 80-100 fL Mean Corpuscular Hemoglobin 20.7 25-34 pg Mean Corpuscular Hemoglobin Concent 29.8 32-36 g/dl RDW Standard Deviation 56.3 36.4-46.3 fL RDW Coefficient of Variation 22.1 11.5-14.5 % Platelet Count 531 130-400 K/uL Mean Platelet Volume 8.4 7.4-10.4 fL Sodium Level 131 136-145 mmol/L Potassium Level 4.3 3.5-5.1 mmol/L Chloride Level 101 98-107 mmol/L Carbon Dioxide Level 26 21-32 mmol/L Anion Gap 4.0 3-11 mmol/L Blood Urea Nitrogen 14 7-18 mg/dl Creatinine 0.91 0.60-1.20 mg/dl Est Creatinine Clear Calc Drug Dose 46.6 ml/min Estimated GFR () 67.6 Estimated GFR (Non- 58.3 BUN/Creatinine Ratio 14.8 10-20 Random Glucose 108 70-99 mg/dl Calcium Level 8.1 8.5-10.1 mg/dl Assessment & Plan POD # 2 s/p repair of duodenal ulcer perforation with Grahm Patch - vitals stable - minimal abdominal pain - Leukocytosis (improving) Plan: D/C NGT May have ice chips Decrease iv fluids to 100 mls/hr Start Zosyn IV 3.375 gm Q 8 hours Will continue to follow Dr. Rocha has seen and examined patient, agrees with assessment and plan.
[2016-06-14] MEDS: PIPERACILL/TAZOBAC IV 3.375 GM in DEXTROSE 5% 100ML 100 ML IV SCH ×2 (14:17→22:23)
[2016-06-14 15:43] VITALS: BP 150/83; PULSE 90; TEMP 36.6; O2SAT 100
[2016-06-14 23:14] VITALS: BP 137/81; PULSE 85; TEMP 37.1; O2SAT 95
[2016-06-14] MEDS: MoRPHine SULFATE 2 MG/ML CARP IV PRN (23:52)
[2016-06-15] MEDS: PANTOprazole INJ 40 MG in DEXTROSE 5% 100ML IV SCH ×5 (04:59→23:59)
[2016-06-15] MEDS: PIPERACILL/TAZOBAC IV 3.375 GM in DEXTROSE 5% 100ML 100 ML IV SCH ×2 (05:25→18:05)
--- NOTE | 2016-06-15 06:19 | Clinical Documentation Query ---
CLINICAL DOCUMENTATION QUERY Ms. RAUSCH, In your clinical opinion is this patient being managed for: ( ) Peritonitis in the setting of perforated duodenal ulcer ( ) Other explanation of clinical findings (Please Explain) ( ) Unable to determine (Please Define) ( ) Need to Discuss ( ) Not Agree The medical record reflects the following clinical findings, treatment, and risk factors. Clinical Indicators:Pt described as having mild guarding and diffuse tenderness in abdomen. Operative record indicates pt with approx 1 L of enteric contents in abd cavity. Lactic acid 3.8. Treatment:IV zosyn and IV flagyl preop, IV zosyn x 3 doses postop, IV fluids, emergent surgery Risk Factors: perforated duodenal ulcer. Please clarify and document your clinical opinion in the progress notes and discharge summary. Terms such as "probable", "suspected", "likely", "questionable", "possible", or "still to be ruled out" are acceptable. IF IN AGREEMENT, YOU MUST DOCUMENT ABOVE DIAGNOSTIC STATEMENT IN DAILY PROGRESS NOTES AND DISCHARGE SUMMARY. This document is not part of the patient's record. Thank You, Britany Valencia RN [phone]
[2016-06-15 07:36] VITALS: BP 154/52; PULSE 78; TEMP 36.5; O2SAT 97
[2016-06-15 08:26] LABS: HEMATOCRIT 25.4 % (37-47); MEAN CELL VOLUME 67.7 fL (80-100); MEAN CORPUSCULAR HEMOGLOBIN 21.1 pg (25-34); MEAN CORPUSCULAR HGB CONC 31.1 g/dl (32-36); MEAN PLATELET VOLUME 8.2 fL (7.4-10.4); PLATELET COUNT 570 K/uL (130-400); RED BLOOD COUNT 3.75 M/uL (4.2-5.4); WHITE BLOOD COUNT 12.89 K/uL (4.8-10.8)
[2016-06-15] MEDS: ENOXAPARIN 40 MG/0.4 ML SYR SQ SCH (08:48)
[2016-06-15] MEDS: D5W AND 1/2NSS + 20MEQ KCL 1,000 ML IV SCH ×2 (08:49→18:06)
[2016-06-15 09:04] LABS: BUN/CREATININE RATIO 7.6 (10-20); CALCIUM 8.4 mg/dl (8.5-10.1); CREATININE 0.83 mg/dl (0.60-1.20); POTASSIUM 4.3 mmol/L (3.5-5.1)
--- NOTE | 2016-06-15 09:23 | Surgery Progress Note ---
Surgery Progress Note Date of Service Jun 15, 2016. Subjective Post OP Day: 3 + diet (tolerating ice chips), + feeling well, + pain controlled, No SOB, No bowel movement, No chest pain, No complaints, No flatus, No nausea, No vomiting Objective Vital Signs: Date Time Temp Pulse Resp B/P Pulse Ox O2 Delivery O2 Flow Rate FiO2 06/15/16 08:57 Room Air 06/15/16 07:36 36.5 78 18 154/52 97 Room Air 06/15/16 07:05 Room Air 06/14/16 23:40 Room Air 06/14/16 23:14 37.1 85 16 137/81 95 Room Air 06/14/16 20:00 Room Air 06/14/16 15:43 36.6 90 17 150/83 100 Room Air General Appearance: WD/WN, no apparent distress Head: normocephalic, atraumatic Respiratory/Chest: no respiratory distress, no accessory muscle use Abdomen: non tender, soft, + distended (minimal) Incision(s): clean, dry, intact, no erythema, no drainage Extremities: normal range of motion Laboratory Results: Results Past 24 Hours Test 06/15/16 07:50 Range/Units White Blood Count 12.89 4.8-10.8 K/uL Red Blood Count 3.75 4.2-5.4 M/uL Hemoglobin 7.9 12.0-16.0 g/dL Hematocrit 25.4 37-47 % Mean Corpuscular Volume 67.7 80-100 fL Mean Corpuscular Hemoglobin 21.1 25-34 pg Mean Corpuscular Hemoglobin Concent 31.1 32-36 g/dl RDW Standard Deviation 56.5 36.4-46.3 fL RDW Coefficient of Variation 22.8 11.5-14.5 % Platelet Count 570 130-400 K/uL Mean Platelet Volume 8.2 7.4-10.4 fL Sodium Level 132 136-145 mmol/L Potassium Level 4.3 3.5-5.1 mmol/L Chloride Level 101 98-107 mmol/L Carbon Dioxide Level 22 21-32 mmol/L Anion Gap 9.0 3-11 mmol/L Blood Urea Nitrogen 6 7-18 mg/dl Creatinine 0.83 0.60-1.20 mg/dl Est Creatinine Clear Calc Drug Dose 51.1 ml/min Estimated GFR () 75.6 Estimated GFR (Non- 65.2 BUN/Creatinine Ratio 7.6 10-20 Random Glucose 108 70-99 mg/dl Calcium Level 8.4 8.5-10.1 mg/dl Assessment & Plan POD # 3 s/p repair of duodenal ulcer perforation with Grahm Patch - vitals stable - minimal abdominal pain - Leukocytosis (improving) - no nausea or vomiting - no bowel function - slightly distended Acute Anemia vs. Chronic Anemia? - s/p 2 units of PRBCs - asymptomatic - hemoglobin/hematocrit stable at 7.9/25.4 (7.0 pre-operatively) Plan: Continue IV fluids Continue NPO except ICe chips waiting flatus to advance diet to clear liquids encourage ambulation Will continue to monitor Dr. Rocha has seen and examined patient, agrees with above stated findings and treatment plan.
[2016-06-15 11:44] VITALS: BP 139/78; PULSE 78; TEMP 37.1; O2SAT 95
[2016-06-15 15:30] VITALS: BP 143/71; PULSE 66; O2SAT 94
[2016-06-15] MEDS ORDERED: PIPERACILL/TAZOBAC CONSULT ACTIVE PRN (17:00)
[2016-06-15 23:10] VITALS: BP 134/77; PULSE 92; TEMP 36.9; O2SAT 95
[2016-06-16] MEDS: MoRPHine SULFATE 2 MG/ML CARP IV PRN (00:09)
[2016-06-16] MEDS: PIPERACILL/TAZOBAC IV 3.375 GM in DEXTROSE 5% 100ML 100 ML IV SCH ×3 (02:40→18:10)
[2016-06-16] MEDS: D5W AND 1/2NSS + 20MEQ KCL 1,000 ML IV SCH ×3 (04:59→23:54)
[2016-06-16] MEDS: PANTOprazole INJ 40 MG in DEXTROSE 5% 100ML IV SCH ×2 (04:59→09:48)
[2016-06-16 07:02] LABS: HEMATOCRIT 26.8 % (37-47); MEAN CELL VOLUME 67.3 fL (80-100); MEAN CORPUSCULAR HEMOGLOBIN 20.6 pg (25-34); MEAN CORPUSCULAR HGB CONC 30.6 g/dl (32-36); MEAN PLATELET VOLUME 8.3 fL (7.4-10.4); PLATELET COUNT 593 K/uL (130-400); RED BLOOD COUNT 3.98 M/uL (4.2-5.4); WHITE BLOOD COUNT 12.76 K/uL (4.8-10.8)
[2016-06-16 07:20] VITALS: BP 134/77; PULSE 83; TEMP 36.6; O2SAT 98
[2016-06-16 07:37] LABS: BUN/CREATININE RATIO 4.1 (10-20); CALCIUM 8.3 mg/dl (8.5-10.1); CREATININE 0.89 mg/dl (0.60-1.20); POTASSIUM 4.1 mmol/L (3.5-5.1)
[2016-06-16] MEDS: ENOXAPARIN 40 MG/0.4 ML SYR SQ SCH (09:19)
--- NOTE | 2016-06-16 13:57 | Surgery Progress Note ---
Surgery Progress Note Date of Service Jun 16, 2016. Subjective + ambulating, + diet (clear liquids), + feeling well, + flatus, + pain controlled, No SOB, No bowel movement, No chest pain, No complaints, No nausea, No vomiting felt slightly nauseated after clear liquids last evening passed flatus last night and this morning no bowel movement pain minimal Objective Vital Signs: Date Time Temp Pulse Resp B/P Pulse Ox O2 Delivery O2 Flow Rate FiO2 06/16/16 07:25 Room Air 06/16/16 07:20 36.6 83 18 134/77 98 Room Air 06/16/16 00:00 Room Air 06/15/16 23:10 36.9 92 17 134/77 95 Room Air 06/15/16 16:00 Room Air 06/15/16 15:30 66 18 143/71 94 Room Air General Appearance: WD/WN, no apparent distress Head: normocephalic, atraumatic Respiratory/Chest: no respiratory distress, no accessory muscle use Abdomen: non tender, non distended, soft Incision(s): clean, dry, intact, no erythema, no drainage Extremities: normal range of motion Laboratory Results: Results Past 24 Hours Test 06/16/16 06:31 Range/Units White Blood Count 12.76 4.8-10.8 K/uL Red Blood Count 3.98 4.2-5.4 M/uL Hemoglobin 8.2 12.0-16.0 g/dL Hematocrit 26.8 37-47 % Mean Corpuscular Volume 67.3 80-100 fL Mean Corpuscular Hemoglobin 20.6 25-34 pg Mean Corpuscular Hemoglobin Concent 30.6 32-36 g/dl RDW Standard Deviation 57.3 36.4-46.3 fL RDW Coefficient of Variation 23.4 11.5-14.5 % Platelet Count 593 130-400 K/uL Mean Platelet Volume 8.3 7.4-10.4 fL Sodium Level 134 136-145 mmol/L Potassium Level 4.1 3.5-5.1 mmol/L Chloride Level 100 98-107 mmol/L Carbon Dioxide Level 24 21-32 mmol/L Anion Gap 10.0 3-11 mmol/L Blood Urea Nitrogen 4 7-18 mg/dl Creatinine 0.89 0.60-1.20 mg/dl Est Creatinine Clear Calc Drug Dose 47.6 ml/min Estimated GFR () 69.5 Estimated GFR (Non- 59.9 BUN/Creatinine Ratio 4.1 10-20 Random Glucose 121 70-99 mg/dl Calcium Level 8.3 8.5-10.1 mg/dl Assessment & Plan POD # 4 s/p repair of duodenal ulcer perforation with Grahm Patch - vitals stable - minimal abdominal pain - Leukocytosis (improving) - no nausea or vomiting - + flatus Acute Anemia vs. Chronic Anemia? - s/p 2 units of PRBCs - asymptomatic - hemoglobin/hematocrit stable at 8.2/26 (7.0 pre-operatively) Plan: Continue clear liquids, advised patient to take it slow. Start full liquids tomorrow. Continue IV fluids Stop Protonix drip and start BID Protonix IV encourage ambulation Will discuss with case management patient would prefer discharge to rehab instead of home with home health. Will continue to monitor I have discussed this patient with Dr. De León who is in agreement with above stated findings and treatment plan. 06/16/2016 at 3:30 pm Spoke with Karolina from Case Management who is on pts service today. She will speak with patient in regards to her wishes for rehab vs. home with home health care again Hopefully discharge this Tuesday Dr. De León to see patient later this afternoon. Pt had an episode of projectile vomiting earlier today. Feels better now. Also with some pain in RLQ. Passing flatus, no bowel movement. On exam, more distended today, does have bowel tones, soft, nontender without guarding. Will check ugi series. OK to change to bid protonix. Continue clears only.
[2016-06-16 16:40] VITALS: BP 133/83; PULSE 88; TEMP 37; O2SAT 95
[2016-06-16] MEDS: PANTOprazole INJ 40 MG in SYRINGE 0 ML IV SCH (20:58)
[2016-06-16 23:18] VITALS: BP 150/82; PULSE 85; TEMP 36.7; O2SAT 97
[2016-06-17] MEDS: PIPERACILL/TAZOBAC IV 3.375 GM in DEXTROSE 5% 100ML 100 ML IV SCH ×3 (01:41→17:30)
[2016-06-17 06:28] LABS: BUN/CREATININE RATIO 3.7 (10-20); CREATININE 0.79 mg/dl (0.60-1.20)
[2016-06-17 06:43] LABS: HEMATOCRIT 26.4 % (37-47); MEAN CELL VOLUME 69.5 fL (80-100); MEAN CORPUSCULAR HEMOGLOBIN 20.3 pg (25-34); MEAN CORPUSCULAR HGB CONC 29.2 g/dl (32-36); MEAN PLATELET VOLUME 8.5 fL (7.4-10.4); PLATELET COUNT 578 K/uL (130-400); WHITE BLOOD COUNT 10.22 K/uL (4.8-10.8)
[2016-06-17 07:10] VITALS: O2SAT 98
[2016-06-17 07:12] VITALS: BP 145/81; PULSE 79; TEMP 36.8; O2SAT 98
--- NOTE | 2016-06-17 09:11 | DIAGNOSTIC IMAGING REPORT ---
UPPER GI STUDY CLINICAL HISTORY: Vomiting. History of surgery for perforated ulcer. COMPARISON STUDY: None FLUOROSCOPY TIME: 4.6 minutes. 27 fluoroscopic images were acquired.. FINDINGS: The examination was performed utilizing [employer]. There is a large hiatal hernia present. There is a probable organoaxial tortuous. There is no gastric outlet obstruction. No extravasation is visualized. There is post duodenal bulb edema, likely postsurgical. IMPRESSION: 1. Large hiatal hernia 2. Post bulbar duodenal edema, likely postsurgical 3. No extravasation identified Electronically signed by: Yuval Nixon M.D. 06/17/2016 9:09 AM Dictated Date/Time: 06/17/2016 9:06 AM
[2016-06-17] MEDS: PANTOprazole INJ 40 MG in SYRINGE 0 ML IV SCH ×2 (09:37→20:39)
[2016-06-17] MEDS: ENOXAPARIN 40 MG/0.4 ML SYR SQ SCH (09:37)
[2016-06-17] MEDS: D5W AND 1/2NSS + 20MEQ KCL 1,000 ML IV SCH ×2 (10:35→20:39)
--- NOTE | 2016-06-17 13:45 | Surgery Progress Note ---
Surgery Progress Note Date of Service Jun 17, 2016. Subjective + ambulating, + bowel movement, + pain controlled, No nausea Objective Vital Signs: Date Time Temp Pulse Resp B/P Pulse Ox O2 Delivery O2 Flow Rate FiO2 06/17/16 07:12 36.8 79 16 145/81 98 Room Air 06/17/16 07:10 98 Room Air 06/17/16 00:00 Room Air 06/16/16 23:18 36.7 85 18 150/82 97 Room Air 06/16/16 16:40 37.0 88 16 133/83 95 Room Air 06/16/16 15:20 Room Air General Appearance: WD/WN, no apparent distress Respiratory/Chest: no respiratory distress, no accessory muscle use Cardiovascular: regular rate, rhythm Abdomen: normal bowel sounds, non tender, non distended, soft Incision(s): clean, dry, intact Extremities: no pedal edema Laboratory Results: Results Past 24 Hours Test 06/17/16 05:25 Range/Units White Blood Count 10.22 4.8-10.8 K/uL Red Blood Count 3.80 4.2-5.4 M/uL Hemoglobin 7.7 12.0-16.0 g/dL Hematocrit 26.4 37-47 % Mean Corpuscular Volume 69.5 80-100 fL Mean Corpuscular Hemoglobin 20.3 25-34 pg Mean Corpuscular Hemoglobin Concent 29.2 32-36 g/dl RDW Standard Deviation 60.1 36.4-46.3 fL RDW Coefficient of Variation 23.9 11.5-14.5 % Platelet Count 578 130-400 K/uL Mean Platelet Volume 8.5 7.4-10.4 fL Sodium Level 137 136-145 mmol/L Potassium Level 4.0 3.5-5.1 mmol/L Chloride Level 104 98-107 mmol/L Carbon Dioxide Level 24 21-32 mmol/L Anion Gap 9.0 3-11 mmol/L Blood Urea Nitrogen 3 7-18 mg/dl Creatinine 0.79 0.60-1.20 mg/dl Est Creatinine Clear Calc Drug Dose 53.7 ml/min Estimated GFR () 80.2 Estimated GFR (Non- 69.2 BUN/Creatinine Ratio 3.7 10-20 Random Glucose 78 70-99 mg/dl Calcium Level 8.0 8.5-10.1 mg/dl Assessment & Plan POD # 5 s/p repair of duodenal ulcer perforation with Grahm Patch - UGI series shows hiatal hernia, no sign of leak or extravasation or obstruction -will advance diet to low fiber as she has had two bowel movements Acute Anemia vs. Chronic Anemia? - s/p 2 units of PRBCs - asymptomatic - hemoglobin/hematocrit stable (7.0 pre-operatively) Plan: On IV protonix bid - convert to PO on discharge. Take stool sample for H.pylori. Advance diet to low fiber diet. Continue to increase activity. Plan discharge to rehab - possibly Sat if no further nausea or vomiting. Will continue antibiotics for 7 days given free perforation- leukocytosis resolved now. Stop on Sat. Dr. Jimenez and Rocha to cover as I will be going on vacation. Pt aware.
--- NOTE | 2016-06-17 14:35 | Discharge Instructions ---
Discharge Instructions Admission Reason for Admission: Perforated Duodenal Ulcer Discharge Discharge Diagnosis / Problem: S/p exploratory lapartomy and repair of duodenal ulcer perforation Discharge Goals Goal(s): Decrease discomfort, Improve function, Increase independence Activity Recommendations Activity Limitations: as noted below No heavy lifting over 10 pounds for 6 weeks walking is encouraged no strenuous activity No driving while taking any narcotic pain medication . Instructions / Follow-Up Instructions / Follow-Up You may shower You do not have to keep a dressing on the incision You will need follow-up in Surgical office in 1 week for staple removal You will need to take Protonix (Proton Pump Inhibitor) to inhibit acid production twice a day Please call office at [phone] to make an appointment If you develop severe abdominal pain, nausea, vomiting, incisional redness/ drainage/bleeding please call office or if symptoms severe go to emergency room for further evaluation. Current Hospital Diet Patient's current hospital diet: Low Fiber Diet Discharge Diet Recommended Diet: Low Fiber Diet Procedures Procedures Performed: Exploratory Laparotomy and repair of perforated duodenal ulcer with jay jay patch Pending Studies Studies pending at discharge: yes (h. PYLORI , STOOL SAMPLE) List of pending studies: H. pylori stool test Medical Emergencies . Who to Call and When: Medical Emergencies: If at any time you feel your situation is an emergency, please call 911 immediately. . Non-Emergent Contact Non-Emergency issues call your: Primary Care Provider, Surgeon Call Non-Emergent contact if: temperature is above 101.5, your pain is not controlled, your pain is worsening, wound has increased drainage, wound has increased redness, wound has increased pain . "Provider Documentation" section prepared by Keira Rivera. VTE Core Measure Inpt VTE Proph given/why not?: Enoxaparin (Lovenox)SQ, SCD's [place] Drug Monitoring Program Search Results: patient reviewed within database, no issues identified
[2016-06-17] MEDS ORDERED: PANT1TAB48 PO (14:36)
[2016-06-17 15:15] VITALS: BP 125/77; PULSE 84; TEMP 36.6; O2SAT 98
[2016-06-17 23:07] VITALS: BP 119/68; PULSE 80; TEMP 37.3; O2SAT 96
[2016-06-18] MEDS: PIPERACILL/TAZOBAC IV 3.375 GM in DEXTROSE 5% 100ML 100 ML IV SCH ×2 (02:08→09:53)
[2016-06-18] MEDS: D5W AND 1/2NSS + 20MEQ KCL 1,000 ML IV SCH (06:13)
[2016-06-18 07:22] VITALS: BP 154/84; PULSE 80; TEMP 37.1; O2SAT 95
[2016-06-18 08:07] LABS: CREATININE 0.74 mg/dl (0.60-1.20)
[2016-06-18] MEDS: ENOXAPARIN 40 MG/0.4 ML SYR SQ SCH (09:06)
[2016-06-18] MEDS: PANTOprazole INJ 40 MG in SYRINGE 0 ML IV SCH (09:06)
--- NOTE | 2016-06-18 11:10 | Surgery Progress Note ---
Surgery Progress Note Date of Service Jun 18, 2016. Subjective Post OP Day: POD # 6 + ambulating, + bowel movement, + diet, + feeling well, + flatus, + pain controlled, No SOB, No chest pain, No complaints, No nausea, No vomiting Objective Vital Signs: Date Time Temp Pulse Resp B/P Pulse Ox O2 Delivery O2 Flow Rate FiO2 06/18/16 07:40 Room Air 06/18/16 07:22 37.1 80 16 154/84 95 Room Air 06/17/16 23:07 37.3 80 17 119/68 96 Room Air 06/17/16 19:10 Room Air 06/17/16 15:15 36.6 84 16 125/77 98 Room Air General Appearance: WD/WN, no apparent distress Head: normocephalic, atraumatic Respiratory/Chest: no respiratory distress, no accessory muscle use Abdomen: non tender, non distended, soft, no organomegaly Incision(s): clean, dry, intact, no erythema, no drainage Laboratory Results: Results Past 24 Hours Test 06/17/16 17:20 06/18/16 07:24 Range/Units Creatinine 0.74 0.60-1.20 mg/dl Est Creatinine Clear Calc Drug Dose 57.3 ml/min Estimated GFR () 86.8 Estimated GFR (Non- 74.9 Assessment & Plan POD # 6 s/p repair of duodenal ulcer perforation with Grahm Patch - vitals stable - minimal abdominal pain, controlled - Leukocytosis resolved - no nausea or vomiting - + return of bowel function Acute Anemia vs. Chronic Anemia? - s/p 2 units of PRBCs - asymptomatic - hemoglobin/hematocrit stable (7.0 pre-operatively) PLAN: Plan to discharge patient today to rehab Continue soft diet Decrease IV fluids to 63/mls Continue IV antibiotics until discharged Will given discharge instructions and Rx for Percocet and Protonix Follow-up with Dr. De León in [address] Jimenez has seen and examined patient agrees with assessment and plan.
[2016-06-18] MEDS ORDERED: OXYC-57 PO (11:13)
[2016-06-18] MEDS ORDERED: PANT1TAB48 PO (11:15)
[2016-06-18 13:12] VITALS: BP 154/84; PULSE 80; TEMP 37.1; O2SAT 95
--- NOTE | 2016-06-28 15:20 | Discharge Summary ---
Discharge Summary Dates Admission Date / Time: Jun 12, 2016 at 11:23 Discharge Date: Jun 18, 2016 Dispostion / Condition Discharge Disposition: Rehab Condition at Discharge: Good Principal Diagnosis (1) Perforated duodenal ulcer Problem List (1) Perforated duodenal ulcer (2) Arthritis Consultations / Procedures Consultations: None Procedures: Exploratory Laparotomy with primary repair of perforated duodenal ulcer and Nba Patch Pending Studies / Follow-Up H. pylori stool Ag: NOT DETECTED Medication Reconciliation New Medications: Oxycodone/Acetaminophen 5MG/325MG (Percocet 5MG/325MG) Tab 1 TABLET PO Q4H PRN for Pain, #18 TAB Pantoprazole (Protonix) 40 Mg Tab 1 TAB PO BID for 30 Days, #60 TAB 3 Refills Continued Medications: Acetaminophen Tab (Tylenol) 325 Mg Tab 650 MG PO DAILY PRN for prn, TAB Ergocalciferol (Vitamin D) 400 Inter.unit Tab 400 INTER.UNIT PO DAILY, TAB Multiple Vitamins W/ Minerals (Womens 50+ Advanced) 1 Cap Cap 1 TAB PO DAILY Admission HPI Per the Admitting provider: Nelida presented to emergency department on 06/12/2016 with complaint of sudden abdominal pain after she woke up that morning. She was in her usual state of health until she awoke and sat up in bed and twisted to stretch at which time she felt as though something "popped". Developed sharp, intense, generalized abdominal pain. Constant, 10/10, worse with movement, no relieving factors. No nausea or vomiting. No fevers. Last meal was dinner the evening prior. Some pain medication helped the pain somewhat. She had a CT scan of abdomen and pelvis which showed pneumoperitoneum suspicious of perforated viscous. Hospital Course (1) Perforated duodenal ulcer Nelida underwent exploratory laparotomy with primary repair of perforated duodenal ulcer with Nba Patch without any complications and was transferred to Med/Surg floor in stable condition. She was started on IV fluids, NGT to low intermittent suction, NPO, Protonix drip for 72 hours, and IV Morphine and Zofran prn. POD # 1 had a leukocytosis of 28, and hemoglobin was 5.5 (pre- operative hemoglobin was 7.0). She was given 2 units of PRBCs. PT/OT consults were ordered and NGT was continued and kept NPO. POD # 2 leukocytosis improved to 17, NGT was discontinued and started on ice chips. Zosyn was started 3.375 mg IV q 8 hours. POD # 3 leukocytosis continued to improve to 12, H&H stable and was started on clear liquids. POD # 4 she had some nausea with the liquids. Finally some bowel function with flatus however no bowel movement. Protonix drip was discontinued and BID dosing started. Later than day she had an episode of projective vomiting and then felt better. UGI series ordered for the morning. POD # 5 upper gi series showed no evidence of a leak and no extravasation. Her diet was advanced to low fiber diet. Plans for discharge to rehab facility were discussed with case management. POD # 6 leukocytosis resolved, h&h stable, tolerated low fiber diet and abdominal pain was very minimal. She was discharged to rehab facility for deconditioning and rehab. She is to follow-up with Dr. De León in office in 1 week for staple removal. Overall hospital course was uneventful. Discharge Instructions as given to patient Copies To Primary Care Provider: Juan Merritt M.D..
== END 2016-06-18 15:45 | DRG 330 ==
LOC: ENRESERVDT → ENRESERVTM → EDBD 07:44 → C.EDC 07:45 → C.MSN 11:23
PROVIDERS: ADMIT Surgery; ATTEND Surgery
PROC: 0DU907Z Supplement Duodenum with Autologous Tissue Substitute, Open Approach (ICD-10-PCS; principal; 2016-06-12 08:56)
DX: K26.5 Chronic or unspecified duodenal ulcer with perforation (principal); D62 Acute posthemorrhagic anemia; M48.56XA Collapsed vertebra, not elsewhere classified, lumbar region, initial encounter for fracture; Z96.653 Presence of artificial knee joint, bilateral; M19.90 Unspecified osteoarthritis, unspecified site; Z79.899 Other long term (current) drug therapy; K44.9 Diaphragmatic hernia without obstruction or gangrene; K42.9 Umbilical hernia without obstruction or gangrene; K80.20 Calculus of gallbladder without cholecystitis without obstruction

== ENCOUNTER → 2016-06-22 | Outpatient (CLI) | payer OTHER, MEDICARE ==
[~2016-06-22] MED LIST changes: -ALEN70TA2 PO; -METRONIDAZOLE 500MG / NSS IV SCH; +OXYC-57 PO; +PANT1TAB48 PO; -PANT40TA PO
[2016-06-22 09:48] LABS: BASO % 0.4 %; BASO ABS # 0.03 K/uL (0-0.2); EOS % 4.4 %; HEMATOCRIT 25.8 % (37-47); IG% 0.3 %; LYMPH % 19.5 %; LYMPH ABS # 1.42 K/uL (1.2-3.4); MEAN CORPUSCULAR HEMOGLOBIN 20.9 pg (25-34); MEAN CORPUSCULAR HGB CONC 30.2 g/dl (32-36); MEAN PLATELET VOLUME 8.6 fL (7.4-10.4); MONO % 13.1 %; NEUT % 62.3 %; PLATELET COUNT 583 K/uL (130-400); RED BLOOD COUNT 3.74 M/uL (4.2-5.4); WHITE BLOOD COUNT 7.27 K/uL (4.8-10.8)
[2016-06-22 10:00] LABS: BLOOD UREA NITROGEN 9 mg/dl (7-18); BUN/CREATININE RATIO 11.3 (10-20); CALCIUM 8.3 mg/dl (8.5-10.1); CARBON DIOXIDE 28 mmol/L (21-32); CHLORIDE 102 mmol/L (98-107); CREATININE 0.83 mg/dl (0.60-1.20); GLUCOSE 78 mg/dl (70-99); POTASSIUM 4.3 mmol/L (3.5-5.1); SODIUM 139 mmol/L (136-145)
[2016-06-22 10:23] LABS: ANISOCYTOSIS PRESENT; COMPLETE YES; HYPOCHROMIA PRESENT
== END ==
LOC: C.LABVPSUA 09:20
PROVIDERS: ATTEND Internal Medicine Critical Care Medicine
DX: D64.9 Anemia, unspecified (principal); R60.9 Edema, unspecified

== ENCOUNTER → 2016-06-28 | Outpatient (CLI) | payer OTHER, MEDICARE ==
[2016-06-28 10:01] LABS: HEMATOCRIT 27.7 % (37-47); MEAN CELL VOLUME 69.8 fL (80-100); MEAN CORPUSCULAR HEMOGLOBIN 20.9 pg (25-34); MEAN PLATELET VOLUME 8.8 fL (7.4-10.4); PLATELET COUNT 702 K/uL (130-400); RED BLOOD COUNT 3.97 M/uL (4.2-5.4); WHITE BLOOD COUNT 5.54 K/uL (4.8-10.8)
--- NOTE | 2016-06-30 08:04 | CODING QUERY NO DIAGNOSIS ---
: 1935 TREATMENT RENDERED WITHOUT A DIAGNOSIS To promote full compliance with coding requirements relating to patient care, physician participation is requested in all cases of enterprise sales person uncertainty. Please assist us with providing a diagnosis/symptom for the test(s) below: A diagnosis/symptom was not documented on your Order. A valid diagnosis/symptom is required to bill all insurances. Please remember that we are unable to code a diagnosis of rule out, probable, possible, questionable, or suspected. Tests that require a diagnosis: DOS: 06/28/16 * CBC w/o Differential DIAGNOSIS: Provider Signature: Date: Thank you Mary Jo [facility] Information Management Once completed, please kindly fax back to [phone] For questions please call [phone]
== END | disposition home or self-care (01) ==
LOC: C.LABVPSUA 09:33
PROVIDERS: ATTEND Internal Medicine Critical Care Medicine
DX: D64.9 Anemia, unspecified (principal)

== ENCOUNTER → 2016-09-27 | Outpatient (CLI) | payer OTHER, MEDICARE ==
--- NOTE | 2016-09-27 09:31 | DIAGNOSTIC IMAGING REPORT ---
GI SERIES W/AIR ROUTINE CLINICAL HISTORY: HIATEL HERNIA, history of perforated duodenal ulcer. COMPARISON STUDY: June 17, 2016 FLUOROSCOPY TIME: 2.1 minutes. 25 fluoroscopic spot images were acquired.. FINDINGS: Patient swallowed effervescent granules and barium without difficulty. There is a tiny Zenker's diverticulum. There is a large paraesophageal hiatal hernia. No gastric masses are visualized. There is no suggestion outlet obstruction. There is a diverticulum arising from the second portion the duodenum. IMPRESSION: 1. Large paraesophageal hiatal hernia. Possible organoaxial volvulus. 2. No evidence of gastric outlet obstruction. 3. Tiny Zenker's diverticulum 4. Duodenal diverticulum Electronically signed by: Yuval Nixon M.D. 09/27/2016 9:29 AM Dictated Date/Time: 09/27/2016 9:25 AM
== END ==
LOC: C.RAD 08:34
PROVIDERS: ATTEND Internal Medicine Gastroenterology
DX: K44.9 Diaphragmatic hernia without obstruction or gangrene (principal)

== ENCOUNTER 2021-10-12 18:38 | Observation (INO) ==
[2021-10-12 21:03] LABS: Basophils # (auto) 0.02 K/uL (0-0.2); Basophils % (auto) 0.2 %; Eosinophils # (auto) 0.11 K/uL (0-0.5); Hematocrit (blood only) 50.1 % (37-47); Hemoglobin 17.9 g/dL (12.0-16.0); Immature Granulocytes # (auto) 0.03 K/uL (0.00-0.02); Immature Granulocytes % (auto) 0.3 %; Lymphocytes # (auto) 1.02 K/uL (1.2-3.4); Lymphocytes % (auto) 9.1 %; Mean Corpuscular Hemoglobin 37.1 pg (25-34); Mean Corpuscular Hgb Conc 35.7 g/dL (32-36); Mean Corpuscular Volume 103.9 fL (80-100); Mean Platelet Volume 10.2 fL (7.4-10.4); Monocytes # (auto) 1.13 K/uL (0.11-0.59); Monocytes % (auto) 10.1 %; Neutrophils # (auto) 8.92 K/uL (1.4-6.5); Neutrophils % (auto) 79.3 %; Platelet Count 275 K/uL (130-400); RDW Coefficient of Variation 13.7 % (11.5-14.5); RDW Standard Deviation 52.5 fL (36.4-46.3); Red Blood Count 4.82 M/uL (4.2-5.4); White Blood Count 11.23 K/uL (4.8-10.8)
--- NOTE | 2021-10-12 21:07 | XRay Report ---
KUB CLINICAL HISTORY: Constipation. FINDINGS: 2 AP supine abdominal radiographs are correlated with abdominal CT dated 10/03/2018. There i s gaseous distention of the: With no radiographic evidence of high-grade bowel obstruction. There is rectosigmoid fecal impaction and mild constipation. A pessary is noted in the pelvis. No evidence of intraperitoneal free air is seen on these supine images. There are no abnormal abdominal calcificatio ns. The skeletal structures are osteopenic and appear intact. There is advanced lumbosacral spondylos is and mild scoliosis. IMPRESSION: 1. Rectosigmoid fecal impaction with mild constipation and gaseous distention of the upstream colon. 2. There is no radiographic evidence of high-grade bowel obstruction. Electronically signed by: Terry Josue M.D. 10/12/2021 9:06 PM
[2021-10-12 21:24] LABS: Alanine Aminotransferase 11 U/L (7-52); Albumin Globulin Ratio 1.2 (0.9-2); Albumin Level 4.2 gm/dl (3.4-5.0); Alkaline Phosphatase 97 U/L (34-104); Anion Gap 10 (3-11); Aspartate Aminotransferase 20 U/L (13-39); BUN Creatinine Ratio 14.6 (10-20); Bilirubin,Total 1.1 mg/dl (0.2-1.0); Blood Urea Nitrogen 15 mg/dl (6-23); Carbon Dioxide 28 mmol/L (21-32); Chloride 95 mmol/L (98-107); Est GFR (African American) 56.2 ml/min; Est GFR (Non-African American) 48.5 ml/min; Globulin 3.6 gm/dl (2.5-4.0); Glucose 103 mg/dl (70-99(Fasting)); Potassium 4.2 mmol/L (3.5-5.1); Sodium 133 mmol/L (136-145); Total Protein 7.8 gm/dl (6.0-8.3)
[2021-10-12] MEDS ORDERED: ACETAMINOPHEN 1,000 MG/100 ML VIAL IV STA (23:57)
[2021-10-12] MEDS ORDERED: fentaNYL citrate 100 MCG/2 ML VIAL IV ONE (23:57)
[2021-10-13] MEDS: SODIUM CHLORIDE 0.9% 1000ML 1,000 ML IV SCH ×2 (00:24→13:22)
[2021-10-13] MEDS ORDERED: hydrALAZINE HCL 20 MG/ML VIAL IV ONE (00:51)
[2021-10-13] MEDS ORDERED: OPTIRAY 320 100ml IV ONE (01:17)
[2021-10-13 01:57] LABS: Appearance Urine Clear (Clear); Bilirubin Urine Negative (Negative); Blood Urine Negative (Negative); Color Urine Yellow; Glucose Urine UA Negative (Negative); Ketones Urine Trace (Negative); Leukocyte Esterase Urine Negative (Negative); Nitrite Urine Negative (Negative); Protein Urine Negative (Negative); Specific Gravity Urine 1.021 (1.000-1.030); Urobilinogen Urine Negative (Negative)
--- NOTE | 2021-10-13 02:37 | Emergency Department Note ---
ED Provider Note CHIEF COMPLAINT: Constipation, flank pain HISTORY OF PRESENT ILLNESS: This 86-year-old female patient presents to the emergency department with complaints of constipation and bilateral flank pain. Patient states she feels that the pain is radiating from her abdomen up and through to her back. She was experienced pain like this in the past. The patient did take magnesium citrate in order to have a bowel movement at the recommendation of a family friend/physician. She states she has been having liquidy bowel movements ever since. She does feel that her abdomen is somewhat bloated. She does admit to a fall several days ago. She did not think much of it but did land on her left side. She does experience some pain with movement of the back. Patient denies any significant urinary symptoms. She denies any fevers, head injury or loss of consciousness. Patient believes that the fall was related to a stumble and fall, she does not believe that she passed out. Patient denies any blood thinner use. She does live at home by herself and is here with a friend. REVIEW OF SYSTEMS: A review of systems was performed with positives and pertinent negatives listed in the history of present illness. 10 systems were reviewed and are otherwise negative. ALLERGIES: see below MEDICATIONS: see below PMH: see below SOCIAL HISTORY: see below DDx: Infection, dehydration, metabolic abnormality, hypo/hyperglycemia, electrolyte disturbance, anemia, hypoxia, cardiac sources, intracerebral event, toxicologic, neurologic, as well as other pathologies. PHYSICAL EXAM: Vital signs reviewed. General: Well-appearing 86-year-old female, in no significant distress. HEENT: No scleral icterus, PERRLA, neck supple. Atraumatic. Cardiovascular: Regular rate and rhythm, no extra sounds. Pulmonary: Clear to auscultation bilaterally, normal work of breathing. Abdomen: Soft, nontender, nondistended, positive bowel sounds. Musculoskeletal: Atraumatic, no peripheral edema. Nontender to palpation of the cervical and thoracic spine. Mild tenderness to palpation over the thoracolumbar junction without step-off or deformity. There is no CVA tenderness appreciated. No pain to pelvic rocking. Equal movement of the bilateral lower extremities. Neurologic: Patient awake alert and oriented x 3, speech is clear Skin: Warm, dry, no rash EMERGENCY DEPARTMENT COURSE/MDM: [] MONITORING: An order for cardiac monitoring was placed and the patient is noted to be in a [] at [] beats per minute. RADIOLOGY: CT L SPINE: CT abdomen pelvis from today. Prior CT abdomen pelvis 10/03/2018. Acute left lower rib fractures as described on CT abdomen pelvis also today. Old L1 compression deformity with complete height loss and retropulsion similar to the prior. Moderate to severe canal stenosis at this level. Multilevel degenerative changes. Radiologist: Christi Santos M.D. Study ready at 01:42 and initial results transmitted at 02:30 CT ABDOMEN & PELVIS With Contrast: Prior 10/03/2018. Multiple acute appearing left lower rib fractures, new since prior. Left posterior T10, T11 and T12 rib fractures. T11 rib fracture is comminuted with displaced fragments. Old L1 compression deformity with complete height loss and retropulsion similar to the prior. Slight deformity/fracture of the mid to lower sacrum series 301 image 42. New since prior although age-indeterminate. Mild bibasilar atelectasis. Large hiatal hernia containing stomach and colonic loops. Large amount of stool within distended rectum. Colonic diverticulosis. Fluid throughout parts of the colon. No small bowel dilation Right lower quadrant spigelian hernia. No obstruction. Cholelithiasis. Pessary. Right renal cyst. No hydronephrosis. Radiologist: Christi Santos M.D. Study ready at 01:42 and initial results transmitted at 02:28 EKG: DISPOSITION: Past Med/Surg History Medical History (Updated 10/13/21 @ 07:40 by Arley Angelo MD) Arthritis No pertinent family history Perforated duodenal ulcer Surgical History (Updated 10/03/18 @ 10:33 by Lou Mendoza) No pertinent past surgical history Family History Other No pertinent family history Social History (Updated 10/03/18 @ 10:34 by Lou Mendoza) Smoking Status: Never smoker Hx Alcohol Use: Yes Alcohol type: wine and hard liquor Hx Substance Use: No Preferred Language: Uzbek Communication Ability: Effective Visual Impairment: No Limitations Hearing Ability: [place] Program Technician Required: No Beliefs That Will Affect Care: None Current Living Situation: Alone Feels Safe at Home: Yes Safety Concerns: Feels Safe At This Time Assistive Devices: Walker Allergies Allergies Allergy/AdvReac Type Severity Reaction Status Date / Time No Known Allergies Allergy Verified 10/12/21 22:32 Home Meds Home Medications Medication Instructions Recorded Confirmed tramadol 50 mg tablet 50 mg PO UD PRN 10/12/21 10/12/21 Previous Rx's Medication Instructions Recorded polyethylene glycol 3350 17 gram 17 g PO DAILY PRN #14 ea 10/14/21 oral powder packet (Miralax) sennosides 8.6 mg tablet (senna) 8.6 mg PO DAILY #30 tab 10/14/21 Results & Data (ED) Vital Signs Vital Signs - 24 hr 10/12/21 18:43 10/13/21 00:02 10/13/21 00:30 Temperature 36.8 C Temperature Source Temporal Artery Scan Pulse Rate 87 86 83 Pulse Rate [Apical] Pulse Rate from SpO2 Sensor Respiratory Rate 20 22 17 Respiratory Effort / Characteristics Non-Labored Respiratory Depth Normal Blood Pressure 170/110 H 200/121 H Blood Pressure [Right Arm] Blood Pressure Mean 130 147 Blood Pressure Mean [Right Arm] Pulse Oximetry 95 97 Oxygen Delivery Method Room Air Room Air Sepsis Recent Fever Within 48 Hours No Sepsis New/Unexplained Change in Mental Status N/A Sepsis Action Taken by Nursing No Action Required 10/13/21 01:11 10/13/21 01:13 10/13/21 01:30 Temperature Temperature Source Pulse Rate Pulse Rate [Apical] 104 H Pulse Rate from SpO2 Sensor 86 102 H Respiratory Rate 18 Respiratory Effort / Characteristics Non-Labored Respiratory Depth Normal Blood Pressure 158/101 H Blood Pressure [Right Arm] 158/101 H Blood Pressure Mean 120 Blood Pressure Mean [Right Arm] 120 Pulse Oximetry 99 99 94 Oxygen Delivery Method Room Air Sepsis Recent Fever Within 48 Hours Sepsis New/Unexplained Change in Mental Status Sepsis Action Taken by Nursing 10/13/21 01:41 10/13/21 01:46 Temperature Temperature Source Pulse Rate Pulse Rate [Apical] Pulse Rate from SpO2 Sensor 99 H 106 H Respiratory Rate Respiratory Effort / Characteristics Respiratory Depth Blood Pressure 129/89 104/85 Blood Pressure [Right Arm] Blood Pressure Mean 102 91 Blood Pressure Mean [Right Arm] Pulse Oximetry 97 96 Oxygen Delivery Method Sepsis Recent Fever Within 48 Hours Sepsis New/Unexplained Change in Mental Status Sepsis Action Taken by Nursing Laboratory Data Result diagrams: 10/13/21 06:45 10/13/21 06:45 Lab Results 10/12/21 10/12/21 10/12/21 Range/Units 20:50 20:50 20:50 WBC 11.23 H (4.8-10.8) K/uL RBC 4.82 (4.2-5.4) M/uL Hgb 17.9 H (12.0-16.0) g/dL Hct 50.1 H (37-47) % MCV 103.9 H (80-100) fL MCH 37.1 H (25-34) pg MCHC 35.7 (32-36) g/dL RDW Std Deviation 52.5 H (36.4-46.3) fL RDW Coeff of Verenice 13.7 (11.5-14.5) % Plt Count 275 (130-400) K/uL MPV 10.2 (7.4-10.4) fL Immature Gran % (Auto) 0.3 % Neut % (Auto) 79.3 % Lymph % (Auto) 9.1 % [place] % (Auto) 10.1 % Eos % (Auto) 1.0 % Baso % (Auto) 0.2 % Neut # (Auto) 8.92 H (1.4-6.5) K/uL Lymph # (Auto) 1.02 L (1.2-3.4) K/uL [place] # (Auto) 1.13 H (0.11-0.59) K/uL Eos # (Auto) 0.11 (0-0.5) K/uL Baso # (Auto) 0.02 (0-0.2) K/uL Immature Gran # (Auto) 0.03 H (0.00-0.02) K/uL Sodium 133 L (136-145) mmol/L Potassium 4.2 (3.5-5.1) mmol/L Chloride 95 L (98-107) mmol/L Carbon Dioxide 28 (21-32) mmol/L Anion Gap 10 (3-11) BUN 15 (6-23) mg/dl Creatinine 1.03 (0.6-1.2) mg/dl Est Cr Clr Drug Dosing Not Reportable Est GFR ( Amer) 56.2 ml/min Est GFR (Non-Af Amer) 48.5 ml/min BUN/Creatinine Ratio 14.6 (10-20) Glucose 103 H (70-99(Fasting)) mg/dl Calcium 10.0 (8.5-10.1) mg/dl Magnesium 2.5 H (1.7-2.4) mg/dl Total Bilirubin 1.1 H (0.2-1.0) mg/dl AST 20 (13-39) U/L ALT 11 (7-52) U/L Alkaline Phosphatase 97 (34-104) U/L Total Protein 7.8 (6.0-8.3) gm/dl Albumin 4.2 (3.4-5.0) gm/dl Globulin 3.6 (2.5-4.0) gm/dl Albumin/Globulin Ratio 1.2 (0.9-2) TSH (0.300-4.500) uIu/ml Free T4 (0.61-1.60) ng/dl SARS-CoV-2, RNA, NAAT (NEGATIVE) 10/12/21 10/13/21 Range/Units 20:50 02:50 WBC (4.8-10.8) K/uL RBC (4.2-5.4) M/uL Hgb (12.0-16.0) g/dL Hct (37-47) % MCV (80-100) fL MCH (25-34) pg MCHC (32-36) g/dL RDW Std Deviation (36.4-46.3) fL RDW Coeff of Verenice (11.5-14.5) % Plt Count (130-400) K/uL MPV (7.4-10.4) fL Immature Gran % (Auto) % Neut % (Auto) % Lymph % (Auto) % [place] % (Auto) % Eos % (Auto) % Baso % (Auto) % Neut # (Auto) (1.4-6.5) K/uL Lymph # (Auto) (1.2-3.4) K/uL [place] # (Auto) (0.11-0.59) K/uL Eos # (Auto) (0-0.5) K/uL Baso # (Auto) (0-0.2) K/uL Immature Gran # (Auto) (0.00-0.02) K/uL Sodium (136-145) mmol/L Potassium (3.5-5.1) mmol/L Chloride (98-107) mmol/L Carbon Dioxide (21-32) mmol/L Anion Gap (3-11) BUN (6-23) mg/dl Creatinine (0.6-1.2) mg/dl Est Cr Clr Drug Dosing Est GFR ( Amer) ml/min Est GFR (Non-Af Amer) ml/min BUN/Creatinine Ratio (10-20) Glucose (70-99(Fasting)) mg/dl Calcium (8.5-10.1) mg/dl Magnesium (1.7-2.4) mg/dl Total Bilirubin (0.2-1.0) mg/dl AST (13-39) U/L ALT (7-52) U/L Alkaline Phosphatase (34-104) U/L Total Protein (6.0-8.3) gm/dl Albumin (3.4-5.0) gm/dl Globulin (2.5-4.0) gm/dl Albumin/Globulin Ratio (0.9-2) TSH 6.592 H (0.300-4.500) uIu/ml Free T4 1.07 (0.61-1.60) ng/dl SARS-CoV-2, RNA, NAAT NEGATIVE (NEGATIVE) Administered Medications Discontinued Medications Enoxaparin Sodium (Enoxaparin Inj 30 Mg/0.3 Ml Syr) 30 mg SQ QAM [facility] Stop: 11/12/21 08:59 Last Admin: 10/14/21 08:12 Dose: 30 mg Documented by: [id number] Admin: 10/13/21 08:33 Dose: 30 mg Documented by: [id number] Fentanyl Citrate (Fentanyl Citrate 100 Mcg/2 Ml Vial) 25 mcg IV NOW ONE Stop: 10/12/21 23:58 Last Admin: 10/13/21 00:21 Dose: 25 mcg Documented by: [id number] Hydralazine HCl (Hydralazine Hcl 20 Mg/Ml Vial) 5 mg IV NOW ONE Stop: 10/13/21 00:52 Last Admin: 10/13/21 01:47 Dose: Not Given Documented by: [id number] Sodium Chloride (Nss 1000ml) 1,000 mls @ 80 mls/hr IV .[id number] [facility] Stop: 11/11/21 23:29 Last Admin: 10/14/21 01:45 Dose: 80 mls/hr Documented by: [id number] Infusion: 10/14/21 01:45 Dose: 0 mls/hr Documented by: [id number] Admin: 10/13/21 13:22 Dose: 80 mls/hr Documented by: [id number] Infusion: 10/13/21 12:54 Dose: 80 mls/hr Documented by: [id number] Admin: 10/13/21 00:24 Dose: 80 mls/hr Documented by: [id number] Acetaminophen (Ofirmev) 1,000 mg in 100 mls @ 400 mls/hr IV NOW STA Stop: 10/13/21 00:11 Last Infusion: 10/13/21 01:24 Dose: 0 mls/hr Documented by: [id number] Admin: 10/13/21 00:21 Dose: 400 mls/hr Documented by: [id number] Ioversol (Optiray 320 100ml) 100 ml IV ONCE ONE Stop: 10/13/21 01:18 Last Admin: 10/13/21 01:17 Dose: 93 ml Documented by: [id number] Lidocaine (Lidocaine 5% 1 Patch) 1 [facility] Stop: 11/13/21 08:59 Last Admin: 10/14/21 08:12 Dose: 1 patch Documented by: [id number] Lidocaine (Lidocaine 5% 1 Patch) 1 patch TD ONE STA Stop: 10/13/21 03:34 Last Admin: 10/13/21 04:55 Dose: Not Given Documented by: [id number] Miscellaneous (Remove Lidoderm Patch) 1 ea N/A DAILY@2100 [facility] Stop: 11/12/21 20:59 Last Admin: 10/13/21 20:02 Dose: 1 ea Documented by: [id number] Senna/Docusate Sodium (Docusate Sodium/Senna 50/8.6mg Tab) 1 tab PO [facility] Stop: 11/12/21 08:59 Last Admin: 10/14/21 08:13 Dose: 1 tab Documented by: [id number] Admin: 10/13/21 08:34 Dose: Not Given Documented by: [id number] Tramadol HCl (Tramadol Hcl 50 Mg Tablet) 25 - 50 mg PO Q4H PRN PRN Reason: Pain Stop: 11/12/21 04:52 Last Admin: 10/14/21 08:18 Dose: 50 mg Documented by: [id number] Admin: 10/13/21 22:57 Dose: 50 mg Documented by: [id number] Admin: 10/13/21 13:21 Dose: 50 mg Documented by: [id number] Imaging Data Radiologist's Impression: KUB X-Ray 10/12/21 18:51 KUB CLINICAL HISTORY: Constipation. FINDINGS: 2 AP supine abdominal radiographs are correlated with abdominal CT dated 10/03/2018. There is gaseous distention of the: With no radiographic evid ence of high-grade bowel obstruction. There is rectosigmoid fecal impaction and mild constipation. A pessary is noted in the pelvis. No evidence of intraperitoneal free air is seen on these supine images. There are no abnormal abdominal calcifications. The skeletal structures are osteopenic and appear intact. There is advanced lumbosacral spondylosis and mild scoliosis. IMPRESSION: 1. Rectosigmoid fecal impaction with mild constipation and gaseous distention of the upstream colon. 2. There is no radiographic evidence of high-grade bowel obstruction. Electronically signed by: Terry Josue M.D. 10/12/2021 9:06 PM Discharge Plan Visit Data Chief Complaint: Back Injury/Pain Stated Complaint: BACK SPASMS ED Provider: Malika Beauchamp Patient Disposition: Admitted As Inpatient Discharge Instructions Interventions: ED Discharge Assessment Last Done: 10/13/21 04:30
--- NOTE | 2021-10-13 02:59 | History & Physical Report ---
Date of Service October 13, 2021 Assessment & Plan (1) Compression fracture: Plan: Thoracic and lumbar compression fractures Ambulatory dysfunction Fall from last month Constipation possibly narcotic induced PUD status post surgery prediabetes, hemoglobin A1c of 5.1 last year. OBS GMF Analgesia, Lidoderm patch trial Bowel regimen PT OT eval DVT prophylaxis per Lovenox subcu DNR Text document was generated using [employer] voice recognition software. It may contain grammatical or spelling errors. Kindly contact undersigned for clarification of any documentation item in question. History of Present Illness Chief Complaint: Back pain, constipation Primary Care Provider: Dr. Arabella Fowler History obtained from patient, family, and records. Medical history significant for situational hypertension, GERD, compression fractures, PUD status post surgery, prediabetes. Last 2016 under General Surgery service for perforated duodenal ulcer status post surgery. Patient had a mechanical fall at home about a month ago. Hit her left back on the desk. Left back pain complaints without leg weakness/numbness. Patient seen at PCPs office last October 02. Rib series showed multiple chronic left rib fractures. Acute fracture posterior left 10th rib. No pneumothorax. Thoracic spine x-ray showed old L1 compression fracture, T12 and T7 compression fractures of unknown age. Patient prescribed tramadol as needed for pain. 2 days ago, patient noted intense spasm of the back without weakness. Increased constipation not relieved by laxative at home. Last BM was 3 nights ago. Some nausea, abdominal discomfort. No fever, no chills. Patient brought to ER by friend for worsening symptoms. Bowel movements noted after manual disimpaction. Patient anal sphincter noted to be tight as per ER provider. 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 Allergies Allergy/AdvReac Type Severity Reaction Status Date / Time No Known Allergies Allergy Verified 10/12/21 22:32 Home Medications Medication Instructions Recorded Confirmed Type tramadol 50 mg tablet 50 mg PO UD PRN 10/12/21 10/12/21 History Past Med/Surg History Medical History (Updated 10/13/21 @ 07:40 by Arley Angelo MD) Arthritis No pertinent family history Perforated duodenal ulcer Surgical History (Updated 10/03/18 @ 10:33 by Lou Mendoza) No pertinent past surgical history Family History Other No pertinent family history Social History (Updated 10/03/18 @ 10:34 by Lou Mendoza) Smoking Status: Never smoker Hx Alcohol Use: Yes Alcohol type: wine and hard liquor Hx Substance Use: No Preferred Language: Faroese Communication Ability: Effective Visual Impairment: No Limitations Hearing Ability: Normal Road Marker Required: No Beliefs That Will Affect Care: None Current Living Situation: Alone Feels Safe at Home: Yes Safety Concerns: Feels Safe At This Time Assistive Devices: Denture - Upper, Hearing Aid - Bilateral and Walker Review of Systems Review of Systems: As per HPI, all other systems reviewed and negative Physical Exam Physical Exam: GENERAL: Comfortable, pleasant, no respiratory distress SKIN: Normal color, warm HEENT: Spiro palpebral conjunctivae, no ptosis, dry buccal mucosa NECK : Supple, no tenderness CHEST : CTA, minimal chest wall tenderness HEART : RRR, no obvious murmurs ABDOMEN: Some distention, nontender BACK : Mid back tenderness, negative SLR EXTREMITIES : No LE swelling/tenderness, no other conspicuous deformities noted NEUROLOGIC : Coherent, no facial asymmetry, gait and stance not assessed Results & Data Results & Data ([facility]) Vital Signs (Past 12 Hours) Vital Signs Temp Pulse Pulse Resp BP BP Pulse Ox 10/13/21 02:55 68 14 117/89 98 10/13/21 01:46 104/85 96 10/13/21 01:41 129/89 97 10/13/21 01:30 94 10/13/21 01:13 104 H 18 158/101 H 99 10/13/21 01:11 158/101 H 99 10/13/21 00:30 83 17 10/13/21 00:02 86 22 200/121 H 97 10/12/21 18:43 36.8 C 87 20 170/110 H 95 Laboratory Results Laboratory Results WBC 11.23 K/uL (4.8-10.8) H 10/12/21 20:50 RBC 4.82 M/uL (4.2-5.4) 10/12/21 20:50 Hgb 17.9 g/dL (12.0-16.0) H 10/12/21 20:50 Hct 50.1 % (37-47) H 10/12/21 20:50 MCV 103.9 fL (80-100) H 10/12/21 20:50 MCH 37.1 pg (25-34) H 10/12/21 20:50 MCHC 35.7 g/dL (32-36) 10/12/21 20:50 RDW Std Deviation 52.5 fL (36.4-46.3) H 10/12/21 20:50 RDW Coeff of Verenice 13.7 % (11.5-14.5) 10/12/21 20:50 Plt Count 275 K/uL (130-400) 10/12/21 20:50 MPV 10.2 fL (7.4-10.4) 10/12/21 20:50 Immature Gran % (Auto) 0.3 % 10/12/21 20:50 Neut % (Auto) 79.3 % 10/12/21 20:50 Lymph % (Auto) 9.1 % 10/12/21 20:50 [place] % (Auto) 10.1 % 10/12/21 20:50 Eos % (Auto) 1.0 % 10/12/21 20:50 Baso % (Auto) 0.2 % 10/12/21 20:50 Neut # (Auto) 8.92 K/uL (1.4-6.5) H 10/12/21 20:50 Lymph # (Auto) 1.02 K/uL (1.2-3.4) L 10/12/21 20:50 [place] # (Auto) 1.13 K/uL (0.11-0.59) H 10/12/21 20:50 Eos # (Auto) 0.11 K/uL (0-0.5) 10/12/21 20:50 Baso # (Auto) 0.02 K/uL (0-0.2) 10/12/21 20:50 Immature Gran # (Auto) 0.03 K/uL (0.00-0.02) H 10/12/21 20:50 Sodium 133 mmol/L (136-145) L 10/12/21 20:50 Potassium 4.2 mmol/L (3.5-5.1) 10/12/21 20:50 Chloride 95 mmol/L (98-107) L 10/12/21 20:50 Carbon Dioxide 28 mmol/L (21-32) 10/12/21 20:50 Anion Gap 10 (3-11) 10/12/21 20:50 BUN 15 mg/dl (6-23) 10/12/21 20:50 Creatinine 1.03 mg/dl (0.6-1.2) 10/12/21 20:50 Est Cr Clr Drug Dosing Not Reportable 10/12/21 20:50 Est GFR ( Amer) 56.2 ml/min 10/12/21 20:50 Est GFR (Non-Af Amer) 48.5 ml/min 10/12/21 20:50 BUN/Creatinine Ratio 14.6 (10-20) 10/12/21 20:50 Glucose 103 mg/dl (70-99(Fasting)) H 10/12/21 20:50 Calcium 10.0 mg/dl (8.5-10.1) 10/12/21 20:50 Total Bilirubin 1.1 mg/dl (0.2-1.0) H 10/12/21 20:50 AST 20 U/L (13-39) 10/12/21 20:50 ALT 11 U/L (7-52) 10/12/21 20:50 Alkaline Phosphatase 97 U/L (34-104) 10/12/21 20:50 Total Protein 7.8 gm/dl (6.0-8.3) 10/12/21 20:50 Albumin 4.2 gm/dl (3.4-5.0) 10/12/21 20:50 Globulin 3.6 gm/dl (2.5-4.0) 10/12/21 20:50 Albumin/Globulin Ratio 1.2 (0.9-2) 10/12/21 20:50 Urine Color Yellow 10/13/21 Unknown Urine Appearance Clear (Clear) 10/13/21 Unknown Urine pH 8.0 (4.5-7.5) H 10/13/21 Unknown Ur Specific [place] 1.021 (1.000-1.030) 10/13/21 Unknown Urine Protein Negative (Negative) 10/13/21 Unknown Urine Glucose (UA) Negative (Negative) 10/13/21 Unknown Urine Ketones Trace (Negative) H 10/13/21 Unknown Urine Blood Negative (Negative) 10/13/21 Unknown Urine Nitrite Negative (Negative) 10/13/21 Unknown Urine Bilirubin Negative (Negative) 10/13/21 Unknown Urine Urobilinogen Negative (Negative) 10/13/21 Unknown Ur Leukocyte Esterase Negative (Negative) 10/13/21 Unknown Impressions KUB X-Ray 10/12/21 18:51 KUB CLINICAL HISTORY: Constipation. FINDINGS: 2 AP supine abdominal radiographs are correlated with abdominal CT dated 10/03/2018. There is gaseous distention of the: With no radiographic evidence of high-grade bowel obstruction. There is rectosigmoid fecal impaction and mild constipation. A pessary is noted in the pelvis. No evidence of intraperitoneal free air is seen on these supine images. There are no abnormal abdominal calcifications. The skeletal structures are osteopenic and appear intact. There is advanced lumbosacral spondylosis and mild scoliosis. IMPRESSION: 1. Rectosigmoid fecal impaction with mild constipation and gaseous distention of the upstream colon. 2. There is no radiographic evidence of high-grade bowel obstruction. Electronically signed by: Terry Josue M.D. 10/12/2021 9:[address] lumbar spine initial read: Acute left lower rib fractures as described on CT abdomen pelvis also today. Old L1 compression deformitywith complete height loss and retropulsion similar to the prior. Moderate to severe canal stenosis at this level. Multilevel degenerative changes CT abdomen pelvis initial read: Multiple acute appearing left lower rib fractures, newsince prior. Left posterior T10, T11 and T12 rib fractures. T11 rib fracture is comminuted with displaced fragments. Old L1 compression deformitywith complete height loss and retropulsion similar to the prior. Slight deformity/fracture of the mid to lower sacrumseries 301 image 42. Newsince prior although age-indeterminate. Mild bibasilar atelectasis. Large hiatal hernia containing stomach and colonic loops. Large amount of stool within distended rectum. Colonic diverticulosis. Fluid throughout parts of the colon. No small bowel dilation Right lower quadrant spigelian hernia. No obstruction. Cholelithiasis. Pessary. Right renal cyst. No hydronephrosis
[2021-10-13] MEDS ORDERED: LIDOCAINE 5% 1 PATCH TD STA (03:33)
[2021-10-13 03:51] LABS: Thyroid Stimulating Hormone 6.592 uIu/ml (0.300-4.500)
[2021-10-13 04:23] LABS: T4 Free Thyroxine 1.07 ng/dl (0.61-1.60)
[2021-10-13] MEDS ORDERED: ACETAMINOPHEN 325 MG TAB PO PRN (04:53)
[2021-10-13] MEDS ORDERED: POLYETHYLENE (MIRALAX) 17 GM PACK PO PRN (04:53)
[2021-10-13] MEDS ORDERED: PROMETHAZINE HCL 6.25 MG in SODIUM CHLORIDE 0.9% 50 ML IV PRN (04:53)
--- NOTE | 2021-10-13 06:34 | XRay Report ---
XR chest 2V PA/lateral CLINICAL HISTORY: Left rib fracture. COMPARISON STUDY: Chest radiograph October 03, 2018. FINDINGS: There is no pneumothorax. Blunting of the left costophrenic angle is probably chronic. Larg e hiatal hernia is noted. There is cardiomegaly. Multiple lateral left-sided rib fractures are old. T he acute appearing posterior left-sided rib fractures on abdominal CT are not well visualized on this exam. No evidence for overt pulmonary edema. Lateral view demonstrates a severe old L1 compression f racture which is similar to CT of October 03, 2018 with retropulsion. There is a mild T12 compression fr acture which is age indeterminate. Moderate T7 compression fracture is likely old. IMPRESSION: 1. No pneumothorax. 2. Acute appearing posterior left-sided rib fractures on abdominal CT obscured on this study. 3. Old L1 compression fracture. Age indeterminate mild T12 compression fracture. Age indeterminate bu t likely old T7 compression fracture. 4. Large hiatal hernia. ACT 112: Negative or not required by law. Electronically signed by: Virgilio Mckoy M.D. 10/13/2021 6:32 AM
--- NOTE | 2021-10-13 07:01 | CT Scan Report ---
CT lumbar spine w con CLINICAL HISTORY: Lumbar back pain. COMPARISON STUDY: CT of the abdomen and pelvis October 03, 2018. TECHNIQUE: Axial images of the lumbar spine were obtained. Sagittal and coronal reconstructions were viewed. Automated exposure control was utilized for the study. A dose lowering technique was utilize d adhering to the principles of ALARA. FINDINGS: Please note that the CT of the abdomen and pelvis will be reported separately. For purposes of numbering on this exam, the L5-S1 disc space is assigned to axial image 283 of 363. There is mild dextroscoliosis of the lumbar spine. Old severe L1 compression fracture with 9 mm of retropulsion is old. This was shown on abdominal CT of October 03, 2018. Retropulsion is unchanged and results in moder ate to severe central canal stenosis. There is also a horizontal fracture along the superior endplate of T12 which is new since prior CT. There is mild associated paravertebral stranding. This fracture is acute to subacute. No definite extension into posterior elements. Minimal retropulsion at the leve l the superior endplate is noted. This does not result in central canal stenosis. No additional lumba r spine fractures are present. Central canal and neural foramen are suboptimally assessed by CT. Ther e is moderate multilevel facet arthrosis and degenerative disc disease. Multiple acute appearing post erior left-sided rib fractures are better depicted on the CT of the abdomen and pelvis which will be reported separately. There are also old lower rib fractures. IMPRESSION: 1. Horizontal fracture along the superior endplate of T12 which is new since CT of October 03, 2018. Thi s results in mild loss of vertebral body height with minimal retropulsion. No definite extension into posterior elements. This fracture is acute to subacute. This finding will be called/faxed to meagan dorado provider at time of dictation. 2. No change in appearance of an old severe L1 compression fracture with retropulsion since CT of Sep. 3. Multiple acute appearing posterior left-sided rib fractures which are better depicted on the CT of the abdomen and pelvis which will be reported separately. 4. Mild dextroscoliosis of the lumbar spine and moderate multilevel degenerative changes. ACT 112: Negative or not required by law. Electronically signed by: Virgilio Mckoy M.D. 10/13/2021 6:58 AM
[2021-10-13 07:43] LABS: Basophils # (auto) 0.02 K/uL (0-0.2); Basophils % (auto) 0.2 %; Eosinophils % (auto) 1.2 %; Hematocrit (blood only) 44.9 % (37-47); Hemoglobin 15.4 g/dL (12.0-16.0); Immature Granulocytes # (auto) 0.02 K/uL (0.00-0.02); Immature Granulocytes % (auto) 0.2 %; Lymphocytes # (auto) 1.25 K/uL (1.2-3.4); Lymphocytes % (auto) 14.8 %; Mean Corpuscular Hgb Conc 34.3 g/dL (32-36); Mean Corpuscular Volume 104.9 fL (80-100); Mean Platelet Volume 10.5 fL (7.4-10.4); Monocytes # (auto) 1.09 K/uL (0.11-0.59); Monocytes % (auto) 12.9 %; Neutrophils # (auto) 5.94 K/uL (1.4-6.5); Neutrophils % (auto) 70.7 %; Platelet Count 305 K/uL (130-400); RDW Standard Deviation 53.9 fL (36.4-46.3); Red Blood Count 4.28 M/uL (4.2-5.4); White Blood Count 8.42 K/uL (4.8-10.8)
[2021-10-13 08:07] LABS: BUN Creatinine Ratio 14.9 (10-20); Calcium 8.8 mg/dl (8.5-10.1); Creatinine Clr Calc Pharmacy 33.2 ml/min; Est GFR (African American) 57.6 ml/min; Est GFR (Non-African American) 49.7 ml/min; Potassium 4.6 mmol/L (3.5-5.1)
[2021-10-13] MEDS: ENOXAPARIN INJ 30 MG/0.3 ML SYR SQ SCH (08:33)
[2021-10-13] MEDS: DOCUSATE SODIUM/SENNA 50/8.6MG TAB PO SCH (08:34)
[2021-10-13] MEDS: traMADol HCL 50 MG TABLET PO PRN ×2 (13:21→22:57)
--- NOTE | 2021-10-13 13:25 | CT Scan Report ---
ABDOMEN AND PELVIS CT WITH IV CONTRAST HISTORY: Acute generalized abdominal pain with constipation B flank and low back pain, constipation, TECHNIQUE: Multiaxial CT images of the abdomen and pelvis were performed following the IV administrat ion of 93 cc of Optiray, A dose lowering technique was utilized adhering to the principles of ALARA. COMPARISON STUDY: CT lumbar spine of same day, CT abdomen and pelvis 10/03/2018 FINDINGS: Cardiomegaly. Coronary artery with mitral annular calcifications. Trace pleural effusions. Subsegmental bibasilar atelectasis/scarring. There is no pneumatosis or pneumoperitoneum. Unremarkable spleen, pancreas and adrenal glands. Distended gallbladder with layering cholelithiasis. No CT evidence of acute cholecystitis. Unremarkable liver. The kidneys are within normal limits. 3.4 cm simple appearing cyst of the superior pole right kidney. No hydronephrosis. Urinary bladder wall thickening with partial distention. Vaginal pessary. Hysterectomy. Atherosclerosis of the aorta witho ut aneurysm. There is no lymphadenopathy. Large hiatal hernia contains the entirety of the stomach along with mesenteric fat and nonobstructed large bowel. There is moderate fecal retention. Scattered colonic air-fluid levels are noted along wi th mild gaseous distention. No bowel obstruction or bowel wall thickening. Noninflamed appendix. Tiny fat filled periumbilical hernia. There is mild generalized body wall edema. Demineralized appearance of the bones with degenerative changes of the spine, pelvis and hips. Horizontal fracture involving the superior endplate of T12, new from prior. Mild vertebral body heigh t loss with only minimal retropulsion. Mild paravertebral edema. Chronic severe burst fracture of L1. There are several chronic appearing bilateral rib fractures. Acute mildly displaced fractures of the posterior left 10th rib. Acute comminuted and mildly displaced fracture of the posterior left 11th r ib. The posterior left 12th rib demonstrates comminuted fractures in [address]. There is mil d sclerosis of the bilateral sacral ala. Chronic appearing fracture of the inferior sacrum at S4-S5 i s new from prior. IMPRESSION: 1. Acute, comminuted and displaced fractures of the left posterior ribs. 2. Acute to subacute appearing horizontal fracture of the superior endplate T12 with only minimal ret ropulsion. 3. Chronic L1 burst fracture with retropulsion. 4. Chronic appearing inferior sacral fracture, new from 2019. 5. No acute posttraumatic intra-abdominal or intrapelvic abnormality. 6. Large hiatal hernia. 7. Fecal retention of the rectum with colonic air-fluid levels possibly representing a diarrheal illn ess. 8. Cholelithiasis. 9. Additional findings as above. ACT 112: Negative or not required by law. The above report was generated using voice recognition software. It may contain grammatical, syntax o r spelling errors. Dictated: 10/13/2021 8:22 AM Transcribed: 10/13/2021 10:47 AM Simran [id number] [email or web address] Electronically signed by: Kevin Duckworth M.D. 10/13/2021 1:24 PM
[2021-10-14] MEDS: SODIUM CHLORIDE 0.9% 1000ML 1,000 ML IV SCH (01:45)
[2021-10-14] MEDS: ENOXAPARIN INJ 30 MG/0.3 ML SYR SQ SCH (08:12)
[2021-10-14] MEDS: DOCUSATE SODIUM/SENNA 50/8.6MG TAB PO SCH (08:13)
[2021-10-14] MEDS: traMADol HCL 50 MG TABLET PO PRN (08:18)
[2021-10-14] MEDS ORDERED: LIDOCAINE 5% 1 PATCH TD SCH (09:00)
--- NOTE | 2021-10-14 10:54 | Hospitalist Progress Note ---
Date of Service October 14, 2021 Assessment & Plan (1) Compression fracture: Plan: Thoracic and lumbar compression fractures Ambulatory dysfunction Fall from last month Analgesia, Lidoderm patch trial Patient is feeling much better, denies any significant pain Reports good results with Lidoderm patch, continues tramadol She is eager for discharge home PT OT eval -recommend return home, CM to set up home health Rectosigmoid fecal impaction -underwent disimpaction in ED Currently feeling much better after having bowel movement, denies any more back pain or spasms Constipation possibly narcotic induced Bowel regimen ordered and discussed with the patient PUD status post surgery Prediabetes, hemoglobin A1c of 5.1 last year. DVT prophylaxis per Lovenox subcu DNR Admission and Anticipated Discharge Date Admission Date: October 14, 2021 Subjective Patient seen in follow-up of back pain, vertebral fracture, rib fractures Severe constipation, rectosigmoid fecal impaction Patient currently feels much better She is ambulating without much difficulty Discussed bowel regimen Patient denies fevers, chills, chest pain, shortness of breath, abdominal pain, nausea vomiting Patient is eager for discharge PT recommends to return home, CM for Review of Systems Review of Systems: All systems reviewed & are unremarkable except as noted in Subjective Physical Exam Physical Exam: GENERAL: Elderly female, in no acute distress HEENT: NC/AT. EOMI. PERRL. [place] palpebral conjunctivae, no ptosis, dry buccal mucosa NECK : Supple, no tenderness CHEST : CTAB HEART : RRR, no obvious murmurs ABDOMEN: soft, + bowel sounds, some distention, nontender BACK : Mid back tenderness, negative SLR EXTREMITIES : No LE swelling/tenderness, moves extremities SKIN: Normal color, warm NEUROLOGIC : Alert oriented, answering questions appropriately. no facial asymmetry, moves extremities Results & Data Results & Data ([facility]) Vital Signs (Past 12 Hours) Vital Signs Temp Pulse Resp BP Pulse Ox 10/14/21 07:59 36.5 C 62 18 165/90 H 96 Medications Administered Current Inpatient Medications Acetaminophen (Acetaminophen 325 Mg Tab) 650 mg PO Q4H PRN PRN Reason: pain/fever Stop: 11/12/21 04:52 Enoxaparin Sodium (Enoxaparin Inj 30 Mg/0.3 Ml Syr) 30 mg SQ QAM BRITNI Stop: 11/12/21 08:59 Last Admin: 10/14/21 08:12 Dose: 30 mg Documented by: Sodium Chloride (Nss 1000ml) 1,000 mls @ 80 mls/hr IV .[id number] [facility] Stop: 11/11/21 23:29 Last Admin: 10/14/21 01:45 Dose: 80 mls/hr Documented by: Promethazine HCl 6.25 mg/ (Sodium Chloride) 50.25 mls @ 201 mls/hr IV Q6H PRN PRN Reason: Nausea And Vomiting Stop: 11/12/21 04:52 Lidocaine (Lidocaine 5% 1 Patch) 1 patch TD [facility] Stop: 11/13/21 08:59 Last Admin: 10/14/21 08:12 Dose: 1 patch Documented by: Miscellaneous (Remove Lidoderm Patch) 1 ea N/A DAILY@2100 [facility] Stop: 11/12/21 20:59 Last Admin: 10/13/21 20:02 Dose: 1 ea Documented by: Polyethylene Glycol (Polyethylene (Miralax) 17 Gm Pack) 17 gm PO DAILY PRN PRN Reason: Constipation Stop: 11/12/21 04:52 Senna/Docusate Sodium (Docusate Sodium/Senna 50/8.6mg Tab) 1 tab PO [facility] Stop: 11/12/21 08:59 Last Admin: 10/14/21 08:13 Dose: 1 tab Documented by: Tramadol HCl (Tramadol Hcl 50 Mg Tablet) 25 - 50 mg PO Q4H PRN PRN Reason: Pain Stop: 11/12/21 04:52 Last Admin: 10/14/21 08:18 Dose: 50 mg Documented by:
--- NOTE | 2021-10-14 11:51 | Discharge Summary ---
Date of Service October 14, 2021 Admission HPI Per Admitting Provider History obtained from patient, family, and records. Medical history significant for situational hypertension, GERD, compression fractures, PUD status post surgery, prediabetes. Last confinement 2016 under General Surgery service for perforated duodenal ulcer status post surgery. Patient had a mechanical fall at home about a month ago. Hit her left back on the desk. Left back pain complaints without leg weakness/numbness. Patient seen at PCPs office last October 02. Rib series showed multiple chronic left rib fractures. Acute fracture posterior left 10th rib. No pneumothorax. Thoracic spine x-ray showed old L1 compression fracture, T12 and T7 compression fractures of unknown age. Patient prescribed tramadol as needed for pain. 2 days ago, patient noted intense spasm of the back without weakness. Increased constipation not relieved by laxative at home. Last BM was 3 nights ago. Some nausea, abdominal discomfort. No fever, no chills. Patient brought to ER by friend for worsening symptoms. Bowel movements noted after manual disimpaction. Patient anal sphincter noted to be tight as per ER provider. Medical History as above Surgical History : Vaginal hysterectomy, Nba patch repair for duodenal perforated ulcer Family History : Heart disease Personal/Social history : Non-smoker, occasional EtOH intake, retired home school liaison officer Admission Exam Per Admitting Provider GENERAL: Comfortable, pleasant, no respiratory distress SKIN: Normal color, warm HEENT: [place] palpebral conjunctivae, no ptosis, dry buccal mucosa NECK : Supple, no tenderness CHEST : CTA, minimal chest wall tenderness HEART : RRR, no obvious murmurs ABDOMEN: Some distention, nontender BACK : Mid back tenderness, negative SLR EXTREMITIES : No LE swelling/tenderness, no other conspicuous deformities noted NEUROLOGIC : Coherent, no facial asymmetry, gait and stance not assessed Principal Diagnosis Back pain, vertebral fracture, rib fractures Severe constipation, rectosigmoid fecal impaction Discharge Exam GENERAL: Elderly female, in no acute distress HEENT: NC/AT. EOMI. PERRL. [place] palpebral conjunctivae, no ptosis, dry buccal mucosa NECK : Supple, no tenderness CHEST : CTAB HEART : RRR, no obvious murmurs ABDOMEN: soft, + bowel sounds, some distention, nontender BACK : Mid back tenderness, negative SLR EXTREMITIES : No LE swelling/tenderness, moves extremities SKIN: Normal color, warm NEUROLOGIC : Alert oriented, answering questions appropriately. no facial asymmetry, moves extremities Discharge Data Allergies Allergy/AdvReac Type Severity Reaction Status Date / Time No Known Allergies Allergy Verified 10/12/21 22:32 Consultations 10/13/21 03:31 ED Decision to Admit Stat Ordered Studies 10/12/21 23:25 CT abd pelvis IV con only Urgent IMPRESSION: 1. Acute, comminuted and displaced fractures of the left posterior ribs. 2. Acute to subacute appearing horizontal fracture of the superior endplate T12 with only minimal retropulsion. 3. Chronic L1 burst fracture with retropulsion. 4. Chronic appearing inferior sacral fracture, new from 2019. 5. No acute posttraumatic intra-abdominal or intrapelvic abnormality. 6. Large hiatal hernia. 7. Fecal retention of the rectum with colonic air-fluid levels possibly representing a diarrheal illness. 8. Cholelithiasis. 9. Additional findings in full report. CT lumbar spine w con Urgent IMPRESSION: 1. Horizontal fracture along the superior endplate of T12 which is new since CT of October 03, 2018. This results in mild loss of vertebral body height with minimal retropulsion. No definite extension into posterior elements. This fracture is acute to subacute. This finding will be called/faxed to ordering provider at time of dictation. 2. No change in appearance of an old severe L1 compression fracture with retropulsion since CT of October 03, 2018. 3. Multiple acute appearing posterior left-sided rib fractures which are better depicted on the CT of the abdomen and pelvis which will be reported separately. 4. Mild dextroscoliosis of the lumbar spine and moderate multilevel degenerative changes. Hospital Course (1) Compression fracture: Thoracic and lumbar compression fractures Ambulatory dysfunction Fall from last month Analgesia, Lidoderm patch trial Patient is feeling much better, denies any significant pain Reports good results with Lidoderm patch, also continues taking tramadol prn She is eager for discharge home PT OT eval -recommend return home, CM to set up home health Rectosigmoid fecal impaction -underwent disimpaction in ED Currently feeling much better after having bowel movement, denies any more back pain or spasms Constipation possibly narcotic induced Bowel regimen ordered and discussed with the patient PUD status post surgery Prediabetes, hemoglobin A1c of 5.1 last year. By CMS guidelines, a determination that the admission or continued stay is not medically necessary has been made by a member of the UR committee and a physician for this hospital stay, therefore a Code 44 will be completed and the Inpatient admission will be changed to outpatient. Total Time Total Time Spent Total Time Spent (In Minutes): 40 Discharge Plan Discharge Items Patient Disposition: Home - Self-Care Reason For Visit: COMP FX, BACK PAIN Discharge Diagnosis: Back pain, vertebral fracture, rib fractures Severe constipation, rectosigmoid fecal impaction Activity: Per Instructions section Non-emergency contact: Primary Care Provider Call non-emergency contact if: you have any medication questions and your symptoms worsen Follow-up/Referrals: Arabella Fowler, [Primary Care Provider] - 10/20/21 3:00 pm Diet: Regular Addtl Attending Provider Instructions: Follow-up with your primary care doctor, the appointment was scheduled for you for October 20. For pain, you can take Tylenol 1000 mg 3 times a day. The max daily dose 3000 mg. You can also use lidocaine patches, often sold under the name Salonpas. For more severe pain, you can continue taking tramadol, as prescribed by your primary care doctor. To avoid constipation, use MiraLAX daily as needed, and Take senna daily. You should have at least 1 bowel movement a day, and your stool should be soft. Pending Studies at Discharge: No Stand-Alone Forms: My [facility], Opioid Pain Management, Smoking Cessation Medications and DC Order Prescriptions: New sennosides [senna] 8.6 mg tablet 8.6 mg PO DAILY Qty: 30 RF: 0 polyethylene glycol 3350 [Miralax] 17 gram Powder In Packet 17 g PO DAILY PRN (Reason: constipation) Qty: 14 RF: 0 Continued tramadol 50 mg tablet 50 mg PO UD PRN (Reason: Pain) RF: 0 Discharge Orders: Discharge Order (Routine); Ordered 10/14/21 Ordered By: Jose Joshua/Other Patient Handouts: Compression Fx Admission Data Admit Date/Time: 10/14/21 08:02 Attending Provider: Jef Raya Admit Provider: Arley Angelo Primary Care Provider: Arabella Fowler Other Providers: Arley Angelo ; [facility] Other Interventions: Discharge Summary Assessment (RN) Last Done: 10/14/21 11:44
== END 2021-10-14 12:13 | disposition home or self-care (01) ==
LOC: ED 18:38 → 3N 18:38 → SUATTDRO 10-13 04:37